=== PATIENT | female | born 1955 | race Caucasian/White ===

== ENCOUNTER 2017-02-25 16:33 | Observation (INO) | payer OTHER ==
[~2017-02-25] VITALS: Ht 160 cm; Wt 64.4 kg
[~2017-02-25 16:33] MED LIST: DULO60CA44 PO; HYDR-3763 PO; LPR25 PO; MOME100A INH; OMEP40CA41 PO; PRDFOPS; TIOTCAP INH; VNTHFA/IN INH
[2017-02-25 16:46] VITALS: Ht 160 cm; Wt 64.4 kg
[2017-02-25 17:00] LABS: HEMATOCRIT 34.6 % (37-47); HEMOGLOBIN 11.7 g/dL (12.0-16.0); MEAN CORPUSCULAR HEMOGLOBIN 29.8 pg (25-34); MEAN CORPUSCULAR HGB CONC 33.8 g/dl (32-36); MEAN PLATELET VOLUME 10.3 fL (7.4-10.4); PLATELET COUNT 273 K/uL (130-400); RED CELL DISTRIBUTION WIDTH CV 13.4 % (11.5-14.5); RED CELL DISTRIBUTION WIDTH SD 43.2 fL (36.4-46.3); WHITE BLOOD COUNT 9.18 K/uL (4.8-10.8)
[2017-02-25 17:09] LABS: PTT PATIENT 26.1 SECONDS (21.0-31.0)
[2017-02-25 17:15] LABS: CALCIUM 8.9 mg/dl (8.5-10.1); CREATININE 0.82 mg/dl (0.60-1.20); POTASSIUM 3.8 mmol/L (3.5-5.1)
--- NOTE | 2017-02-25 17:17 | EMERGENCY ROOM VISIT NOTE ---
History Report prepared by [place]: Selene Dwyer Under the Supervision of: Dr. Niurka Shields M.D. First contact with patient: 16:58 Chief Complaint: CHEST PAIN Stated Complaint: CHEST PAIN, R SHOULDER PAIN Nursing Triage Summary: pt has had intermittent left sided chest pain with radiation down arm for greater than a month, has an appointment with cards, set up. last 0300 awoke with pain, rapid heart rate and diaphoresis. pt later went shopping and it eased up then started again. 2 ntg in route relieved pain History of Present Illness The patient is a 61 year old female who presents to the Emergency Room with complaints of intermittent chest pain beginning at 0300 this morning. She states that she woke up, walked around, got water, and went back to bed. She states that she then woke up at 0730 with tightness in her chest and pain down her left arm. She reports that her heart was also pounding. She states that she went shopping and still had the tightness in her chest. She reports that walking exacerbates her symptoms. She states that she has been having her symptoms intermittently over the last month. She also reports having a chronic cough. The patient states that she took 2 nitroglycerin and aspirin on the way here. The patient was told recently that she may have a heart murmur but has not gone to the automation tech yet. She states that she had a stress test done 2 years ago. She reports that she smokes about 1 pack of cigarettes per day. She states that she takes blood pressure medications and BARBER, but denies a history of diabetes. Source of History: patient Onset: 0300 this morning Position: chest Quality: other (tightness) Timing: intermittent Modifying Factors (Worsening): movement (walking) Associated Symptoms: + cough Note: additional symptoms: pounding heart, left arm pain Review of Systems See HPI for pertinent positives & negatives. A total of 10 systems reviewed and were otherwise negative. Past Medical & Surgical Medical Problems: (1) Lan esophagus (2) COPD (chronic obstructive pulmonary disease) (3) Depression (4) HTN (hypertension) (5) BARBER (mycobacterium avium-intracellulare) Surgical Problems: (1) H/O shoulder surgery (2) H/O tubal ligation (3) History of appendectomy (4) History of hysterectomy (5) Hx of cholecystectomy Family History Diabetes mellitus FH: cancer FH: lung disease Hypertension Social History Smoking Status: Current Every Day Smoker Alcohol Use: occasionally Drug Use: none Marital Status: Housing Status: lives with family Occupation Status: unemployed Current/Historical Medications Scheduled Aspirin (Aspirin EC Low Dose), 81 MG PO QAM Duloxetine Hcl (Cymbalta), 60 MG PO QAM Metoprolol Tartrate (Lopressor), 25 MG PO BID Omeprazole (Prilosec), 40 MG PO QAM Scheduled PRN Albuterol Hfa (Ventolin Hfa), 2 PUFFS INH Q4H PRN for Wheezing Ondasetron Odt (Zofran Odt), 4 MG SL Q6H PRN for Nausea Allergies Coded Allergies: No Known Allergies (Unverified , 02/25/17) Physical Exam Vital Signs Date Time Temp Pulse Resp B/P (MAP) Pulse Ox O2 Delivery O2 Flow Rate FiO2 02/25/17 19:02 85 16 120/65 98 Room Air 02/25/17 18:23 77 19 98 02/25/17 18:00 129/68 02/25/17 17:53 74 19 99 02/25/17 17:48 74 20 97 02/25/17 17:33 74 22 97 02/25/17 17:21 98 Room Air 02/25/17 17:18 75 18 99 02/25/17 17:03 78 22 97 02/25/17 16:49 98 Room Air 02/25/17 16:46 36.6 80 19 144/69 97 Room Air 02/25/17 16:42 81 02/25/17 16:42 144/69 02/25/17 16:35 Room Air Physical Exam Vital signs reviewed. General: Well-appearing female, in no significant distress. HEENT: No scleral icterus, PERRLA, neck supple. Atraumatic. Cardiovascular: Regular rate and rhythm, no extra sounds. Pulmonary: Clear to auscultation bilaterally, normal work of breathing. Abdomen: Soft, nontender, nondistended, positive bowel sounds. Musculoskeletal: Atraumatic, no peripheral edema. Neurologic: Patient awake alert and oriented x 3, full strength in all 4 extremities. Cranial nerves 2 through 12 grossly intact. Skin: Warm, dry, no rash Medical Decision & Procedures ER Provider Diagnostic Interpretation: Radiology results as stated below per my review and radiologist interpretation: SINGLE VIEW CHEST CLINICAL HISTORY: Atypical chest pain. FINDINGS: An AP, portable, upright chest radiograph is compared to study dated 06/13/2013 and correlated with chest CT dated 08/08/2015. The examination is degraded by portable technique, apical lordotic positioning, and patient rotation. The cardiomediastinal silhouette is unremarkable. There is atherosclerotic calcification of the thoracic aorta. Emphysema and chronic interstitial thickening are similar to previous. There is no airspace consolidation or large pleural effusion. No pneumothorax is seen. The skeletal structures are osteopenic. The bony thorax is grossly intact. Cholecystectomy clips are identified in the right upper quadrant. IMPRESSION: Emphysematous change with no acute cardiopulmonary abnormality. Electronically signed by: Ulisses Degroot M.D. 02/25/2017 5:32 PM Dictated Date/Time: 02/25/2017 5:30 PM Laboratory Results Test 02/25/17 16:38 02/25/17 17:21 Prothrombin Time 10.7 SECONDS (9.0-12.0) Prothromb Time International Ratio 1.0 (0.9-1.1) Activated Partial Thromboplast Time 26.1 SECONDS (21.0-31.0) Partial Thromboplastin Ratio 1.0 Total Bilirubin 0.3 mg/dl (0.2-1) Aspartate Amino Transf (AST/SGOT) 12 U/L (15-37) Alanine Aminotransferase (ALT/SGPT) 13 U/L (12-78) Alkaline Phosphatase 78 U/L (45-117) Total Creatine Kinase 66 U/L (26-192) Total Protein 7.5 gm/dl (6.4-8.2) Albumin 4.0 gm/dl (3.4-5.0) Globulin 3.5 gm/dl (2.5-4.0) Albumin/Globulin Ratio 1.1 (0.9-2) Bedside Troponin I < 0.030 ng/ml (0-0.045) Laboratory results per my review. ECG Indication: chest pain Rate (beats per minute): 78 Rhythm: normal sinus Findings: no acute ischemic change, no ectopy, other (possible previous inferior infarct, likely previous septal infarct) ED Course 1705: Past medical records reviewed. The patient was evaluated in room B4B. A complete history and physical examination was performed. 184: I reviewed the patient's case with Kimmy SALVADOR. She will evaluate the patient for further management. 1854: Upon reevaluation, the patient is resting comfortably. I discussed laboratory and radiographic results with her. She verbalized agreement of the treatment plan. The patient will be evaluated for further management and care. Medical Decision Differential diagnosis: Etiologies such as cardiac ischemia, aortic dissection, pulmonary embolism, pneumonia, pneumothorax, musculoskeletal, infections, pericarditis, myocarditis , esophageal rupture, gastrointestinal, as well as others were entertained. This patient was evaluated and appeared to be in no significant distress. Patient declined any pain at the time of my evaluation. EKG reveals no acute ischemic changes. Chest x-ray was obtained and is clear. Patient's laboratory work reveals a negative troponin. Given her history of smoking and pain that is concerning for a coronary origin, patient will be evaluated by the hospitalist service for further management. She is aware of plan and agrees. Medication Reconcilliation Current Medication List: was personally reviewed by me Blood Pressure Screening Patient's blood pressure: Normal blood pressure Consults Time Called: 1799 Consulting Physician: Kimmy Hoffman Returned Call: 1841 I reviewed the patient's case with Kimmy SALVADOR. She will evaluate the patient for further management. Impression Primary Impression: Angina at rest Additional Impression: Palpitations Scribe Attestation The scribe's documentation has been prepared under my direction and personally reviewed by me in its entirety. I confirm that the note above accurately reflects all work, treatment, procedures, and medical decision making performed by me. Departure Information Dispostion Being Evaluated By Hospitalist Prescriptions Aspirin (Aspirin EC Low Dose) 81 Mg Ectab 81 MG PO QAM for 30 Days, #30 TABS 3 Refills take with full stomach Prov: Talita Díaz M.D. 02/26/17 Referrals Melissa Cruz M.D. (PCP) Patient Instructions My [facility] Problem Qualifiers
[2017-02-25 17:20] LABS: CKMB 0.7 ng/ml (0.5-3.6); TOTAL PROTEIN 7.5 gm/dl (6.4-8.2)
--- NOTE | 2017-02-25 17:33 | DIAGNOSTIC IMAGING REPORT ---
SINGLE VIEW CHEST CLINICAL HISTORY: Atypical chest pain. FINDINGS: An AP, portable, upright chest radiograph is compared to study dated 06/13/2013 and correlated with chest CT dated 08/08/2015. The examination is degraded by portable technique, apical lordotic positioning, and patient rotation. The cardiomediastinal silhouette is unremarkable. There is atherosclerotic calcification of the thoracic aorta. Emphysema and chronic interstitial thickening are similar to previous. There is no airspace consolidation or large pleural effusion. No pneumothorax is seen. The skeletal structures are osteopenic. The bony thorax is grossly intact. Cholecystectomy clips are identified in the right upper quadrant. IMPRESSION: Emphysematous change with no acute cardiopulmonary abnormality. Electronically signed by: Ulisses Degroot M.D. 02/25/2017 5:32 PM Dictated Date/Time: 02/25/2017 5:30 PM
[2017-02-25] MEDS ORDERED: ONDANSETRON INJ 2 MG/ML 2 ML VIAL IV PRN (19:15)
[2017-02-25] MEDS ORDERED: OPTIRAY 320 IV PRN (19:15)
[2017-02-25] MEDS ORDERED: NITROGLYCERIN 0.4 MG SL PER TAB CHARGE SL PRN (19:15)
[2017-02-25] MEDS ORDERED: ACETAMINOPHEN 325 MG TAB PO PRN (19:15)
[2017-02-25] MEDS ORDERED: ASPIRIN 325 MG ECTAB PO STA (19:17)
[2017-02-25] MEDS ORDERED: ONDA4TAB10 SL (19:29)
--- NOTE | 2017-02-25 19:58 | History and Physical ---
History & Physical Date & Time of Service: Feb 25, 2017 ~ 19:00 Chief Complaint: Chest Pain Primary Care Physician: Melissa Cruz M.D. History of Present Illness 61 year old female who presents to the ED with chest pain. Patient reports she has been having intermittent episodes of palpitations for the past couple of weeks. Patient reports last night she had an episode of palpitations and then developed left sided chest pressure. Pain was radiating into her left arm. She reports pain eased on its own and she was able to fall asleep. She awoke in the middle of the night with diaphoresis. The left sided chest discomfort was still present but she was able to again fall back asleep. When she woke up this morning pain was still persistent however now was more of a tightness. She reports intermittent left arm pain and numbness throughout the day and chest pain persisted. She called EMS and was given SL nitro en route. She reports that eased the pain however did not resolve it. She now reports a pain in her back between her shoulder blades. She noticed increased exertional shortness of breath since yesterday. She has had some lightheadedness and dizziness but denies syncopal event. She has left chest wall tenderness however reports that is not the same pain she was experiencing earlier. No other recent illnesses, fever, or chills. She denies abdominal pain, nausea, vomiting, and diarrhea. No urinary symptoms. In the ED, EKG does not show any acute ST changes and initial troponin is negative. Past Medical/Surgical History Medical Problems: (1) Lan esophagus Status: Chronic (2) COPD (chronic obstructive pulmonary disease) Status: Chronic (3) Depression Status: Chronic (4) HTN (hypertension) Status: Chronic (5) BARBER (mycobacterium avium-intracellulare) Status: Chronic Surgical Problems: (1) H/O shoulder surgery Permanent Comment: BL Status: Chronic (2) H/O tubal ligation Status: Chronic (3) History of appendectomy Status: Chronic (4) History of hysterectomy Status: Chronic (5) Hx of cholecystectomy Status: Chronic Family History FH: esophageal cancer MOTHER FH: heart disease FATHER Social History Smoking Status: Current Every Day Smoker Alcohol Use: none Immunizations History of Tetanus Vaccine?: Yes Tetanus Immunization Date: Dec 27, 2016 Multi-Drug Resistant Organisms History of MDRO: No Allergies Coded Allergies: No Known Allergies (Unverified , 12/27/17) Home Medications Scheduled Duloxetine Hcl (Cymbalta), 60 MG PO QAM Metoprolol Tartrate (Lopressor), 25 MG PO BID Omeprazole (Prilosec), 40 MG PO QAM Scheduled PRN Albuterol Hfa (Ventolin Hfa), 2 PUFFS INH Q4H PRN for Wheezing Ondasetron Odt (Zofran Odt), 4 MG SL Q6H PRN for Nausea Review of Systems ROS per HPI, all other systems reviewed and negative Physical Exam Vital Signs Date Time Temp Pulse Resp B/P (MAP) Pulse Ox O2 Delivery O2 Flow Rate FiO2 02/25/17 19:02 85 16 120/65 98 Room Air 02/25/17 18:23 77 19 98 02/25/17 18:00 129/68 02/25/17 17:53 74 19 99 02/25/17 17:48 74 20 97 02/25/17 17:33 74 22 97 02/25/17 17:21 98 Room Air 02/25/17 17:18 75 18 99 02/25/17 17:03 78 22 97 02/25/17 16:49 98 Room Air 02/25/17 16:46 36.6 80 19 144/69 97 Room Air 02/25/17 16:42 81 02/25/17 16:42 144/69 02/25/17 16:35 Room Air General Appearance: WD/WN, no apparent distress Head: normocephalic, atraumatic Eyes: normal inspection, EOMI, sclerae normal ENT: hearing grossly normal, + pertinent finding (mucous membranes moist) Neck: supple, no JVD, trachea midline Respiratory/Chest: lungs clear, normal breath sounds, no respiratory distress Cardiovascular: regular rate, rhythm, no edema, normal peripheral pulses Abdomen/GI: normal bowel sounds, non tender, soft, no organomegaly Extremities/Musculoskelatal: normal inspection, no calf tenderness, normal capillary refill Neurologic/Psych: no motor/sensory deficits, alert, normal mood/affect, oriented x 3 Skin: normal color, warm/dry Diagnostics Laboratory Results Results Past 24 Hours Test 02/25/17 16:38 02/25/17 17:21 Range/Units White Blood Count 9.18 4.8-10.8 K/uL Red Blood Count 3.93 4.2-5.4 M/uL Hemoglobin 11.7 12.0-16.0 g/dL Hematocrit 34.6 37-47 % Mean Corpuscular Volume 88.0 80-100 fL Mean Corpuscular Hemoglobin 29.8 25-34 pg Mean Corpuscular Hemoglobin Concent 33.8 32-36 g/dl RDW Standard Deviation 43.2 36.4-46.3 fL RDW Coefficient of Variation 13.4 11.5-14.5 % Platelet Count 273 130-400 K/uL Mean Platelet Volume 10.3 7.4-10.4 fL Prothrombin Time 10.7 9.0-12.0 SECONDS Prothromb Time International Ratio 1.0 0.9-1.1 Activated Partial Thromboplast Time 26.1 21.0-31.0 SECONDS Partial Thromboplastin Ratio 1.0 Sodium Level 138 136-145 mmol/L Potassium Level 3.8 3.5-5.1 mmol/L Chloride Level 105 98-107 mmol/L Carbon Dioxide Level 24 21-32 mmol/L Anion Gap 9.0 3-11 mmol/L Blood Urea Nitrogen 15 7-18 mg/dl Creatinine 0.82 0.60-1.20 mg/dl Est Creatinine Clear Calc Drug Dose 67.0 ml/min Estimated GFR () 90.1 Estimated GFR (Non- 77.8 BUN/Creatinine Ratio 18.1 10-20 Random Glucose 95 70-99 mg/dl Calcium Level 8.9 8.5-10.1 mg/dl Total Bilirubin 0.3 0.2-1 mg/dl Aspartate Amino Transf (AST/SGOT) 12 15-37 U/L Alanine Aminotransferase (ALT/SGPT) 13 12-78 U/L Alkaline Phosphatase 78 45-117 U/L Total Creatine Kinase 66 26-192 U/L Creatine Kinase MB 0.7 0.5-3.6 ng/ml Creatine Kinase MB Ratio 1.1 0-3.0 Total Protein 7.5 6.4-8.2 gm/dl Albumin 4.0 3.4-5.0 gm/dl Globulin 3.5 2.5-4.0 gm/dl Albumin/Globulin Ratio 1.1 0.9-2 Bedside Troponin I < 0.030 0-0.045 ng/ml Diagnostic Radiology CXR IMPRESSION: Emphysematous change with no acute cardiopulmonary abnormality. Impression Assessment and Plan CHEST PAIN - admit to tele - patient presenting with palpitations x 2 weeks and left sided chest pain with radiation into the left arm that started last night - due to patient's report of back pain - will obtain CT to r/o dissection - EKG without acute ST changes, initial troponin negative - risk factors for ACS: HTN, tobacco use - stress test 2012 negative for ischemia - if CT negative; will admit for observation, serial cardiac enzymes, and stress in AM if troponin negative - will give ASA 325mg and then continue with 81mg daily; check lipids in AM; continue metoprolol from home meds HTN - BP controlled, continue metoprolol COPD - no signs of acute exacerbation DEPRESSION - continue Cymbalta LAN ESOPHAGUS - continue PPI DVT PROPHYLAXIS - SQ Lovenox if CT negative for dissection DISPO - The patient will be placed as observation status for now until further work up is complete. Attending addendum: Woke up with Chest pain ,sob and sweating Still has upper chest pain /pressure with pain in between shoulder blades Initial EKG and Tro-negative CTA-negative for any dissection O/E Hemodynamically stable Chest-clear to ausucltate bilaterally Heart-regular Abdomen-benign Extremities-negative for any edema Labs and Imaging studies were reviewed Stress test if ruled out Agree with the assessment and plan. Dr Elisabeth Gray VTE Prophylaxis VTE Risk Assessment Done? Y/N: Yes Risk Level: Moderate
[2017-02-25 20:45] VITALS: BP 146/73; PULSE 66; TEMP 36.3; O2SAT 96
--- NOTE | 2017-02-25 20:45 | NUR ---
Obs. note: Patient arrived on floor. Vss. Normal sinus. No complaints of pain. Independent in room.
--- NOTE | 2017-02-25 21:00 | DIAGNOSTIC IMAGING REPORT ---
CT ANGIOGRAM OF THE CHEST COMBO CLINICAL HISTORY: Atypical chest pain. COMPARISON STUDY: Chest CT scans dated 08/08/2015 and 06/05/2015. TECHNIQUE: Before and following the IV administration of 115 cc of Optiray 320, CT angiogram of the chest was performed from the thoracic inlet to the upper abdomen utilizing the dissection protocol. Images are reviewed in the axial, sagittal, and coronal planes. 3-D MIPS images are created and assessed. IV contrast was administered without complication. A dose lowering technique was utilized adhering to the principles of ALARA. CT DOSE: 504.63 mGy.cm FINDINGS: Thyroid: Imaged portions of the thyroid gland are normal in size and attenuation. Thoracic aorta: No intramural hematoma is seen on the unenhanced series. There is mild atherosclerotic calcification of the thoracic aorta, which is normal in caliber and demonstrates standard 3-vessel arch anatomy. No dissection is seen. The arch vessels are widely patent. Pulmonary vasculature: The pulmonary trunk is normal in caliber. There are no filling defects identified within the main, lobar, or segmental pulmonary arteries to indicate pulmonary embolus. Note that this examination was not specifically protocoled to assess for pulmonary emboli. Heart: The heart is normal in size and configuration, and without pericardial effusion. There are coronary artery calcifications. Lungs and pleural spaces: Evaluation of the lung parenchyma is modestly degraded by motion artifact. Mild emphysematous change is observed. There is bibasilar atelectasis. There is no airspace consolidation or pleural effusion. A calcified granuloma seen at the right lung base. Mild diffuse peribronchial thickening suggests reactive airway disease. The trachea and central airways are clear. Mediastinum: There is no mediastinal lymphadenopathy. Vianney: There are calcification containing right hilar lymph nodes. No hilar adenopathy is seen. Axillae: There is no axillary lymphadenopathy. Upper abdomen: A small hiatal hernia is identified. Cholecystectomy clips are noted. Partially visualized upper abdominal viscera is within normal limits. Skeletal structures: No lytic or blastic bony lesions are seen. Degenerative change is seen in the shoulders and thoracic spine. IMPRESSION: 1. There is no aneurysm or dissection involving the thoracic aorta. 2. There is no evidence of pulmonary embolus in the main, lobar, or segmental pulmonary arteries. 3. Emphysema. 4. There is no airspace consolidation or pleural effusion. 5. Mild diffuse peribronchial thickening suggests reactive airway disease. Clinical correlation will be required. Electronically signed by: Ulisses Degroot M.D. 02/25/2017 8:58 PM Dictated Date/Time: 02/25/2017 8:51 PM
[2017-02-25] MEDS ORDERED: ENOXAPARIN 40 MG/0.4 ML SYR SQ ONE (21:12)
[2017-02-25] MEDS ORDERED: IV FLUIDS COMPLETED PRN (21:15)
[2017-02-25] MEDS ORDERED: NICOTINE 21 MG/24 HR TDSY TD ONE (21:23)
[2017-02-25] MEDS: METOPROLOL TARTRATE 25 MG TAB PO SCH (21:52)
[2017-02-25 22:45] LABS: CKMB 0.8 ng/ml (0.5-3.6)
[2017-02-26] VITALS (7 sets, daily range): BP systolic 114–128; BP diastolic 56–66; PULSE 56–75; TEMP 36.3–36.8; O2SAT 96–99
--- NOTE | 2017-02-26 | NUR ---
Obs. note: Vss. Normal sinus. Npo Mn. for fasting Lipids and stress Echo in A.M. Denies pain. Independent in room.
[2017-02-26 03:52] LABS: HEMATOCRIT 34.1 % (37-47); HEMOGLOBIN 11.3 g/dL (12.0-16.0); MEAN CORPUSCULAR HEMOGLOBIN 29.5 pg (25-34); MEAN CORPUSCULAR HGB CONC 33.1 g/dl (32-36); MEAN PLATELET VOLUME 10.1 fL (7.4-10.4); PLATELET COUNT 248 K/uL (130-400); RED CELL DISTRIBUTION WIDTH CV 13.7 % (11.5-14.5); RED CELL DISTRIBUTION WIDTH SD 44.4 fL (36.4-46.3); WHITE BLOOD COUNT 8.25 K/uL (4.8-10.8)
--- NOTE | 2017-02-26 04:00 | NUR ---
Obs note: Assessment unchanged. Normal sinus. Denies pain. Remains independent in room.
[2017-02-26 04:15] LABS: BLOOD UREA NITROGEN 13 mg/dl (7-18); CALCIUM 8.7 mg/dl (8.5-10.1); CARBON DIOXIDE 27 mmol/L (21-32); CREATININE 0.89 mg/dl (0.60-1.20); GLUCOSE 89 mg/dl (70-99); POTASSIUM 4.2 mmol/L (3.5-5.1); SODIUM 139 mmol/L (136-145)
[2017-02-26 04:21] LABS: CHOLESTEROL 214 mg/dl (0-200); CKMB 0.9 ng/ml (0.5-3.6); LDL CHOLESTEROL CALCULATED 142 mg/dl
--- NOTE | 2017-02-26 08:32 | NUR ---
OBS: Pt is alert and oriented x4. Pt denies any chest pain, pressure or tightness. Pt is Sinus Rhythm with 1st degree AV block. Pt taken to Cardiopulmonary Lab for stress test. Pt refused meds D/t having an empty stomach from being NPO.
[2017-02-26] MEDS ORDERED: NICOTINE 21 MG/24 HR TDSY TD SCH (09:00)
[2017-02-26] MEDS ORDERED: DULOXETINE HCL 60 MG CAP PO SCH (09:00)
[2017-02-26] MEDS ORDERED: PANTOprazole SOD 40 MG TAB PO SCH (09:00)
[2017-02-26] MEDS ORDERED: ENOXAPARIN 40 MG/0.4 ML SYR SQ SCH (09:00)
[2017-02-26] MEDS ORDERED: ASPIRIN 81 MG ECTAB PO SCH (09:00)
--- NOTE | 2017-02-26 10:06 | NUR ---
OBS: Pt returned from having stress test.
[2017-02-26] MEDS ORDERED: PERFLUTREN LIPID MICROSPHERE (DEFINITY) IV ONE (10:08)
[2017-02-26] MEDS: METOPROLOL TARTRATE 25 MG TAB PO SCH (11:03)
--- NOTE | 2017-02-26 12:00 | NUR ---
A: Pt alert and oriented x 4. Pt tolerated stress test well. Awaiting Discharge order. Pt tolerated 100% breakfast and lunch. Pt sinus rhythm on monitor. Pt denies any chest pain, pressure or tightness.
[2017-02-26] MEDS ORDERED: ASPI-320 PO (13:31)
--- NOTE | 2017-02-26 13:32 | Discharge Instructions ---
Discharge Instructions Date of Service Feb 26, 2017. Admission Reason for Admission: Chest Pain Discharge Discharge Diagnosis / Problem: CHEST PAIN /ATYPICAL FOR CARDIAC EVENT / NEGATIVE STRESS TEST Discharge Goals Goal(s): Decrease discomfort, Improve function, Increase independence, Improve disease control, Diagnostic testing Activity Recommendations Activity Limitations: resume your previous activity Exercise/Sports Limitations: none Shower/Bathe: no limitations Driving or Machine Use: no limitations . Instructions / Follow-Up Instructions / Follow-Up HOSPITAL FOLLOW UP : 03/03/2017 11:20 AM Deidra Zhong MD [facility] CARDIOLOGY FOLLOW UP : 03/30/2017 11:00 AM Kathryn Lind, DO Cardiology [facility] YOU ARE ASKED TO TAKE ASPIRIN 81 MG ENTERIC COATED DAILY -FOR FUTURE PREVENTION OF CARDIAC DISEASE PLEASE TAKE WITH FOOD YOUR LIPID PROFILE /CHOLESTEROL LEVEL : TRIGLYCERIDE 154 ( MILDLY ELEVATED NORMAL < 150 ) TOTAL CHOLESTEROL 214 ( IDEAL < 200 ) LDL 142 ( IDEAL < 130 -100 ) ( BAD CHOLESTEROL WHICH DEPOSITS ON HEART VESSELS AND CAUSES NARROWING /CLOT -LEADING TO HEART DISEASE /HEART ATTACK ) HDL -40 ( GOOD CHOLESTEROL -GIVING PROTECTION TO HEART VESSELS ) PLEASE ADOPT HEALTHY LIFESTYLE : Physical activity -Brisk walking /Aerobic exercise at 10 mins session /2 sessions a week Foods that can help lower cholesterol * A variety of whole- and multi-grain products, such as bran and oats. * Fatty fishes, such as salmon, mackerel and albacore tuna. * Foods rich in antioxidants, such as fruits and vegetables. > 5 servings per day * Foods high in omega-3 fatty acids, such as avocado, flax seeds, olive oil and canola oil. Reduce Calorie intake limit intake for Saturated Fat /Trans Fat -Butter , shortening FOOD THAT ARE HIGH IN CHOLESTEROL : Egg yolk Muffins Butter Liver processed food -Burger /Cymraes Fires Ice Cream REPEAT FASTING LIPID PROFILE IN 6 MONTHS TO ASSESS IMPROVEMENT THEN CHECK YEARLY Current Hospital Diet Patient's current hospital diet: AHA Diet (Heart Healthy) Discharge Diet Recommended Diet: AHA Diet (Heart Healthy) Pending Studies Studies pending at discharge: no Laboratory Results Lipid Panel Test 02/26/17 03:35 Range/Units Triglycerides Level 154 H 0-150 mg/dl Cholesterol Level 214 H 0-200 mg/dl HDL Cholesterol 41 mg/dl Cholesterol/HDL Ratio 5.2 LDL Cholesterol, Calculated 142 mg/dl Medical Emergencies . Who to Call and When: Medical Emergencies: If at any time you feel your situation is an emergency, please call 911 immediately. . Non-Emergent Contact Non-Emergency issues call your: Primary Care Provider . . "Provider Documentation" section prepared by Talita Díaz. . VTE Core Measure Inpt VTE Proph given/why not?: Enoxaparin (Lovenox)SQ
--- NOTE | 2017-02-26 14:20 | Discharge Summary ---
Discharge Summary Date of Service Feb 26, 2017. Discharge Summary Admission Date: Feb 25, 2017 at 19:13 Discharge Date: Feb 26, 2017 Discharge Disposition: Home Principal Diagnosis: CHEST PAIN /ATYPICAL FOR CARDIAC EVENT /NEGATIVE STRESS TEST Procedures: CARDIAC STRESS TEST : STRESS STUDY: Normal exercise stress echocardiogram. No echocardiographic or ECG evidence of myocardial ischemia having achieved heart rate adequate for diagnostic purpose CT ANGIOGRAM OF CHEST COMBO: IMPRESSION: 1. There is no aneurysm or dissection involving the thoracic aorta. 2. There is no evidence of pulmonary embolus in the main, lobar, or segmental pulmonary arteries. 3. Emphysema. 4. There is no airspace consolidation or pleural effusion. 5. Mild diffuse peribronchial thickening suggests reactive airway disease. Clinical correlation will be required. Medication Reconciliation New Medications: Aspirin (Aspirin EC Low Dose) 81 Mg Ectab 81 MG PO QAM for 30 Days, #30 TABS 3 Refills take with full stomach Continued Medications: Albuterol Hfa (Ventolin Hfa) 200 Puffs/62753 Mcg Aers 2 PUFFS INH Q4H PRN for Wheezing Duloxetine Hcl (Cymbalta) 60 Mg Cap 60 MG PO QAM, CAP Metoprolol Tartrate (Lopressor) 25 Mg Tab 25 MG PO BID, TAB Omeprazole (Prilosec) 40 Mg Cap 40 MG PO QAM, CAP Ondasetron Odt (Zofran Odt) 4 Mg Tab 4 MG SL Q6H PRN for Nausea, #6 TAB Admission Information HPI (per Admitting provider): 61 year old female who presents to the ED with chest pain. Patient reports she has been having intermittent episodes of palpitations for the past couple of weeks. Patient reports last night she had an episode of palpitations and then developed left sided chest pressure. Pain was radiating into her left arm. She reports pain eased on its own and she was able to fall asleep. She awoke in the middle of the night with diaphoresis. The left sided chest discomfort was still present but she was able to again fall back asleep. When she woke up this morning pain was still persistent however now was more of a tightness. She reports intermittent left arm pain and numbness throughout the day and chest pain persisted. She called EMS and was given SL nitro en route. She reports that eased the pain however did not resolve it. She now reports a pain in her back between her shoulder blades. She noticed increased exertional shortness of breath since yesterday. She has had some lightheadedness and dizziness but denies syncopal event. She has left chest wall tenderness however reports that is not the same pain she was experiencing earlier. No other recent illnesses, fever, or chills. She denies abdominal pain, nausea, vomiting, and diarrhea. No urinary symptoms. In the ED, EKG does not show any acute ST changes and initial troponin is negative. Physical Exam (per Admitting): General Appearance: WD/WN, no apparent distress Head: normocephalic, atraumatic Eyes: normal inspection, EOMI, sclerae normal ENT: hearing grossly normal, + pertinent finding (mucous membranes moist) Neck: supple, no JVD, trachea midline Respiratory/Chest: lungs clear, normal breath sounds, no respiratory distress Cardiovascular: regular rate, rhythm, no edema, normal peripheral pulses Abdomen/GI: normal bowel sounds, non tender, soft, no organomegaly Extremities/Musculoskelatal: normal inspection, no calf tenderness, normal capillary refill Neurologic/Psych: no motor/sensory deficits, alert, normal mood/affect, oriented x 3 Skin: normal color, warm/dry Hospital Course no complain of chest pain or SOB negative cardiac stress test today eager to be discharged home PHYSICAL EXAM : gen : no sign of distress HEENT : sclera non icteric , PERRLA/EOMI HT : regular S1/S2 , no JVD , no carotid bruit Lungs: clear to auscultate , no wheeze or rales EXT: no lower ext edema, no rash or deformity Neurology : no focal neurological deficit , AAO x3 CHEST PAIN /ATYPICAL FOR ISCHEMIA/CARDIAC EVENT - patient presented with palpitations x 2 weeks and left sided chest pain with radiation into the left arm that started last night - CTA of chest no evidence of Aortic dissection Cardiac stress test negative pt dose not have any symptom today no arrhythmia noted in tele stable to be discharged home today asked to take Aspirin 81 mg daily as Primary prevention counselled for Cardiac risk modification Smoking cessation /diet and exercise pt verbalizes understanding - HTN - BP controlled, continue metoprolol COPD - no signs of acute exacerbation DEPRESSION - continue Cymbalta KENNEDY ESOPHAGUS - continue PPI TOBACCO ABUSE : smoking cessation counselling provided DVT PROPHYLAXIS : Sub Q Lovenox DISPOSITION : Stable to be discharged home today Discharge Instructions Discharge Instructions Date of Service Feb 26, 2017. Admission Reason for Admission: Chest Pain Discharge Discharge Diagnosis / Problem: CHEST PAIN /ATYPICAL FOR CARDIAC EVENT / NEGATIVE STRESS TEST Discharge Goals Goal(s): Decrease discomfort, Improve function, Increase independence, Improve disease control, Diagnostic testing Activity Recommendations Activity Limitations: resume your previous activity Exercise/Sports Limitations: none Shower/Bathe: no limitations Driving or Machine Use: no limitations . Instructions / Follow-Up Instructions / Follow-Up HOSPITAL FOLLOW UP : 03/03/2017 11:20 AM Deidra Zhong MD [facility] CARDIOLOGY FOLLOW UP : 03/30/2017 11:00 AM Kathryn Lind, DO Cardiology [facility] YOU ARE ASKED TO TAKE ASPIRIN 81 MG ENTERIC COATED DAILY -FOR FUTURE PREVENTION OF CARDIAC DISEASE PLEASE TAKE WITH FOOD YOUR LIPID PROFILE /CHOLESTEROL LEVEL : TRIGLYCERIDE 154 ( MILDLY ELEVATED NORMAL < 150 ) TOTAL CHOLESTEROL 214 ( IDEAL < 200 ) LDL 142 ( IDEAL < 130 -100 ) ( BAD CHOLESTEROL WHICH DEPOSITS ON HEART VESSELS AND CAUSES NARROWING /CLOT -LEADING TO HEART DISEASE /HEART ATTACK ) HDL -40 ( GOOD CHOLESTEROL -GIVING PROTECTION TO HEART VESSELS ) PLEASE ADOPT HEALTHY LIFESTYLE : Physical activity -Brisk walking /Aerobic exercise at 10 mins session /2 sessions a week Foods that can help lower cholesterol * A variety of whole- and multi-grain products, such as bran and oats. * Fatty fishes, such as salmon, mackerel and albacore tuna. * Foods rich in antioxidants, such as fruits and vegetables. > 5 servings per day * Foods high in omega-3 fatty acids, such as avocado, flax seeds, olive oil and canola oil. Reduce Calorie intake limit intake for Saturated Fat /Trans Fat -Butter , shortening FOOD THAT ARE HIGH IN CHOLESTEROL : Egg yolk Muffins Butter Liver processed food -Burger /Khmer Fires Ice Cream REPEAT FASTING LIPID PROFILE IN 6 MONTHS TO ASSESS IMPROVEMENT THEN CHECK YEARLY Current Hospital Diet Patient's current hospital diet: AHA Diet (Heart Healthy) Discharge Diet Recommended Diet: AHA Diet (Heart Healthy) Pending Studies Studies pending at discharge: no Laboratory Results Lipid Panel Test 02/26/17 03:35 Range/Units Triglycerides Level 154 H 0-150 mg/dl Cholesterol Level 214 H 0-200 mg/dl HDL Cholesterol 41 mg/dl Cholesterol/HDL Ratio 5.2 LDL Cholesterol, Calculated 142 mg/dl Medical Emergencies . Who to Call and When: Medical Emergencies: If at any time you feel your situation is an emergency, please call 911 immediately. . Non-Emergent Contact Non-Emergency issues call your: Primary Care Provider . . "Provider Documentation" section prepared by Talita Díaz. . VTE Core Measure Inpt VTE Proph given/why not?: Enoxaparin (Lovenox)SQ
--- NOTE | 2017-02-26 14:28 | NUR ---
OBS: Discharge instructions given and explained to Pt. Pt verbalizes understanding. Pt discharged to home with friend and all belongings.
--- NOTE | 2017-02-26 18:11 | EXERCISE STRESS ECHO ---
*NOTICE TO RECEIVING CONSTITUTION PARTY AGENCY This information is strictly Confidential and protected under [place] law. [place] law prohibits you from making any further disclosure of this information unless further disclosure is expressly permitted by the written consent of the person to whom it pertains or is authorized by law. A general authorization for the release of medical or other information is not sufficient for this purpose. Hospital accepts no responsibility if the information is made available to any other person, INCLUDING THE PATIENT. Interpretation Summary * Name: SHARMIN BROWN Study Date: 02/26/2017 08:17 AM BP: 132/57 mmHg * Patient Location: [facility]\S\N277\S\1 HR: 77 * : 1955 (M/d/yyyy) Gender: Female Height: 62 in * Age: 61 yrs Ethnicity: [place] Weight: 147 lb * Ordering Physician: Kimmy Reich * Referring Physician: Self, Referred * Performed By: Keya Jimenez RDCS * * Reason For Study: Chest Pain, COPD, HTN * BSA: 1.7 m2 * STRESS STUDY: Normal exercise stress echocardiogram. No echocardiographic or ECG evidence of myocardial ischemia having achieved heart rate adequate for diagnostic purposes. * -- Conclusions -- * STRESS STUDY: Normal exercise stress echocardiogram. No echocardiographic or ECG evidence of myocardial ischemia having achieved heart rate adequate for diagnostic purposes. Procedure Details * ECHOEX, CPT #[id number] * ECHO DOPPLER, CPT #[id number] * ECHO COLOR FLOW, CPT #[id number] * A contrast injection of Definity was performed to improve assessment of LV function. * Contrast was injected into an intravenous site in the left arm. * One vial of Definity ultrasound contrast was diluted in normal saline to a total volume of 10 ml. A total of '4' ml of solution was administered during imaging. * Lot # [id number] of Definity utilized for procedure. * Expiration date . Left Ventricle * The left ventricle is normal in size. * There is mild concentric left ventricular hypertrophy. * Ejection Fraction = 60-65%. * The left ventricular wall motion is normal at rest. Right Ventricle * The right ventricle is grossly normal size. * The right ventricular systolic function is normal. Atria * The left atrial size is normal. * Right atrial size is normal. * There is no evidence of atrial septal defect, but resolution does not allow assessment for a patent foramen ovale. Mitral Valve * The mitral valve is normal in structure and function. Tricuspid Valve * The tricuspid valve is normal in structure and function. Aortic Valve * The aortic valve is normal in structure and function. Pulmonic Valve * The pulmonic valve is not well visualized. Great Vessels * The aortic root and proximal ascending aorta are normal sized. Pericardium * There is no pericardial effusion. Stress Parameters * Baseline ECG was essentially normal. No symptoms were noted. * Normal baseline electrocardiogram. * The stress ECG response was normal * Stress ECG: No ST changes. No arrhythmias. * The stress portion of this study was personally supervised by the undersigned interpreting physician. * Rest heart rate was '77' BPM. * Rest blood pressure was '132/57' * Maximum heart rate achieved was 148 bpm. * Maximum heart rate was 92 % of maximum age-predicted heart rate. * Maximum blood pressure was '204/62' * Total exercise time was '03:58' * Maximum exercise MET level achieved was '5.70' METS * Maximum treadmill speed was '2.50' miles per hour. * Maximum treadmill elevation was '12.00'% grade. MMode 2D Measurements and Calculations IVSd 1.2 cm IVSs 1.3 cm LVIDd 3.5 cm LVIDs 2.3 cm LVPWd 1.1 cm LVPWs 1.4 cm IVS/LVPW 1.0 FS 34.0 % EDV(Teich) 51.4 ml ESV(Teich) 18.5 ml EF(Teich) 64.0 % EDV(cubed) 43.4 ml ESV(cubed) 12.5 ml EF(cubed) 71.3 % % IVS thick 10.4 % % LVPW thick 20.6 % LV mass(C)d 129.1 grams LV mass(C)dI 77.0 grams/m\S\2 LV mass(C)s 93.5 grams LV mass(C)sI 55.7 grams/m\S\2 SV(Teich) 32.9 ml SI(Teich) 19.6 ml/m\S\2 SV(cubed) 31.0 ml SI(cubed) 18.5 ml/m\S\2 Ao root diam 3.0 cm Ao root area 6.9 cm\S\2 ACS 1.5 cm LA dimension 2.5 cm LA/Ao 0.84 LVAd ap4 20.7 cm\S\2 LVLd ap4 7.6 cm EDV(MOD-sp4) 46.8 ml EDV(sp4-el) 47.8 ml LVAs ap4 11.2 cm\S\2 LVLs ap4 5.7 cm ESV(MOD-sp4) 19.4 ml ESV(sp4-el) 18.5 ml EF(MOD-sp4) 58.5 % EF(sp4-el) 61.2 % LVAd ap2 26.3 cm\S\2 LVLd ap2 8.2 cm EDV(MOD-sp2) 70.5 ml EDV(sp2-el) 71.8 ml LVAs ap2 12.8 cm\S\2 LVLs ap2 6.1 cm ESV(MOD-sp2) 23.4 ml ESV(sp2-el) 22.8 ml EF(MOD-sp2) 66.8 % EF(sp2-el) 68.2 % LVLd %diff 7.4 % EDV(MOD-bp) 59.2 ml LVLs %diff 6.6 % ESV(MOD-bp) 21.3 ml EF(MOD-bp) 64.0 % SV(MOD-sp4) 27.3 ml SI(MOD-sp4) 16.3 ml/m\S\2 SV(MOD-sp2) 47.1 ml SI(MOD-sp2) 28.1 ml/m\S\2 SV(MOD-bp) 37.9 ml SI(MOD-bp) 22.6 ml/m\S\2 SV(sp4-el) 29.3 ml SI(sp4-el) 17.5 ml/m\S\2 SV(sp2-el) 49.0 ml SI(sp2-el) 29.2 ml/m\S\2 Doppler Measurements and Calculations MV E max shon 79.5 cm/sec MV A max shon 112.0 cm/sec MV E/A 0.71 MV dec time 0.42 sec Ao V2 max 176.5 cm/sec Ao max PG 12.5 mmHg Ao max PG (full) 4.2 mmHg LV V1 max PG 8.2 mmHg LV V1 max 143.2 cm/sec PA V2 max 98.9 cm/sec PA max PG 3.9 mmHg TR max shon 148.3 cm/sec
== END 2017-02-26 14:30 | disposition home or self-care (01) ==
LOC: EDBD 16:33 → C.EDB 16:36 → C.MED 19:13 → ENRESERV 19:42
PROVIDERS: ADMIT Internal Medicine; ATTEND Hospitalist
DX: R07.89 Other chest pain (principal); R00.2 Palpitations; I10 Essential (primary) hypertension; K22.70 Barrett's esophagus without dysplasia; J44.9 Chronic obstructive pulmonary disease, unspecified; F32.9 Major depressive disorder, single episode, unspecified; F17.200 Nicotine dependence, unspecified, uncomplicated; Z79.899 Other long term (current) drug therapy

== ENCOUNTER 2021-08-06 13:09 | Observation (INO) ==
[2021-08-06] MEDS ORDERED: NITROGLYCERIN 2% OINTMENT 30GM TUBE EXT STA (13:26)
--- NOTE | 2021-08-06 13:30 | Emergency Department Note ---
History of Present Illness General Chief complaint: Cardiac Assessment Time Seen by Provider: 08/06/21 13:16 Source: patient, EMS and old records reviewed Mode of arrival: EMS Limitations: no limitations History of Present Illness Provider complaint: Left shoulder pain, shortness of breath, diaphoresis, recent MD Onset (ago): week(s) 1 Relieved By: + none Exacerbated By: + movement Associated symptoms: + chest pain, + diaphoresis and + shortness of breath Treatments prior to arrival: aspirin and other This is a 65-year-old female presents emergency department via EMS after being seen in her PCPs office for a follow-up appointment following her recent hospitalization for heart attack at [facility]. Patient had been flown to [place] last week for a STEMI. Per records, 2 stents were placed in her RCA for a 100% acute occlusion. Patient states she was discharged on of last week. She states several medications were started upon discharge. She states she is taking them as prescribed. She states since coming home, she has still had exertional symptoms of left shoulder and arm pain, diaphoresis, and shortness of breath. Patient states symptoms do typically improve with rest, however they are sometimes still present. When she described the symptoms to her PCP in the follow-up visit today they obtained a repeat EKG and discussed with her the need for additional emergent evaluation due to ongoing symptoms and concern for recent STEMI. Patient was given 1 nitro and aspirin by EMS without any relief. Pt seen during a time of high acuity and national emergency pandemic while wearing PPE. Home Medications Medication Instructions Recorded Confirmed Type albuterol sulfate 90 mcg/actuation 1 puffs INH Q6H PRN #18 gm 12/08/18 08/08/21 Rx aerosol inhaler (Ventolin HFA) duloxetine 60 mg capsule,delayed 60 mg PO QAM 12/08/18 08/08/21 History release (Cymbalta) trazodone 100 mg tablet 100 mg PO HS 04/03/21 08/08/21 History umeclidinium 62.5 mcg/actuation 1 inh INH QAM 04/09/21 08/08/21 History blister powder for inhalation (Incruse Ellipta) omeprazole 40 mg capsule,delayed 40 mg PO DAILY #90 cap 07/15/21 08/08/21 Rx release ondansetron HCl 4 mg tablet 4 mg PO Q8H PRN #30 tab 07/15/21 08/08/21 Rx aspirin 81 mg chewable tablet 81 mg PO DAILY 08/05/21 08/08/21 History (Aspirin Childrens) atorvastatin 80 mg tablet 80 mg PO DAILY 08/05/21 08/08/21 History carvedilol 3.125 mg tablet 3.125 mg PO BID 08/05/21 08/08/21 History lisinopril 5 mg tablet 5 mg PO DAILY 08/05/21 08/08/21 History nitroglycerin 0.4 mg sublingual 0.4 mg SUBLINGUAL Q5M PRN 08/05/21 08/08/21 History tablet ticagrelor 90 mg tablet 90 mg PO BID 08/05/21 08/08/21 History fluticasone propionate 230 2 puffs INH BID #12 gm 08/07/21 08/08/21 Rx mcg-salmeterol 21 mcg/actuation HFA inhaler (Advair HFA) nystatin 100,000 unit/mL oral 5 ml PO QID 7 Days #150 ml 08/07/21 08/08/21 Rx suspension Allergies Allergy/AdvReac Type Severity Reaction Status Date / Time No Known Allergies Allergy Unverified 08/06/21 15:17 Past Med/Surg History Medical History Acute inferior myocardial infarction [facility] s/p RCA stents x 2 Lan esophagus COPD (chronic obstructive pulmonary disease) Coronary artery disease Depression Diastolic dysfunction Esophageal reflux HTN (hypertension) Hypercholesterolemia 10 year ASCVD risk score 14.1% 07/23/21. Started on Lipitor 20 mg BARBER (mycobacterium avium-intracellulare) Tobacco use Surgical History (Updated 08/08/21 @ 19:57 by Chyna Moulton DO) H/O shoulder surgery "BL" H/O tubal ligation History of appendectomy History of hysterectomy Hx of cholecystectomy S/P cardiac catheterization (~07/30/21) acute 100% thrombotic occlusion of proximal RCA lesion which was treated successfully with overlapping DESx2 (synergy 2.5 mm x 20 mm & synergy 2.75 mm x 38mm) S/P tonsillectomy Family History (Updated 08/06/21 @ 16:36 by Indra Shepherd) Mother Esophageal cancer Social History (Updated 08/06/21 @ 16:37 by Indra Shepherd) Smoking Status: Current every day smoker Cigarettes Per Day: 20; Second Hand Exposure: No; Hx Alcohol Use: Yes (History of heavy alcohol use x 20 years. 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 Feels Safe at Home: Yes Assistive Devices: None Review of Systems A total of 10 systems reviewed and were otherwise negative All systems reviewed & are unremarkable except as noted in HPI & below Physical Exam Vital Signs Vital Signs - 24 hr 08/06/21 13:30 08/06/21 13:45 08/06/21 14:00 Temperature 36.8 C Temperature Source Oral Pulse Rate 67 72 73 Pulse Rate [Apical] Pulse Rate from SpO2 Sensor 67 71 71 Pulse Rhythm [Apical] Pulse Strength [Apical] Respiratory Rate 17 21 19 Respiratory Effort / Characteristics SOB on Exertion Respiratory Depth Blood Pressure 157/72 H 146/84 H Blood Pressure [Left Arm] Blood Pressure Mean 100 104 Blood Pressure Mean [Left Arm] Blood Pressure Position Lying Pulse Oximetry 100 100 98 Oxygen Delivery Method Room Air Room Air Room Air Sepsis Recent Fever Within 48 Hours No Sepsis New/Unexplained Change in Mental Status No Sepsis Action Taken by Nursing No Action Required 08/06/21 14:01 08/06/21 14:15 08/06/21 14:30 Temperature Temperature Source Pulse Rate 64 67 Pulse Rate [Apical] Pulse Rate from SpO2 Sensor 62 66 Pulse Rhythm [Apical] Pulse Strength [Apical] Respiratory Rate 23 22 Respiratory Effort / Characteristics Respiratory Depth Blood Pressure 143/67 H 152/72 H Blood Pressure [Left Arm] Blood Pressure Mean 92 98 Blood Pressure Mean [Left Arm] Blood Pressure Position Pulse Oximetry 98 100 Oxygen Delivery Method Room Air Sepsis Recent Fever Within 48 Hours Sepsis New/Unexplained Change in Mental Status Sepsis Action Taken by Nursing 08/06/21 15:04 Temperature Temperature Source Pulse Rate Pulse Rate [Apical] 66 Pulse Rate from SpO2 Sensor Pulse Rhythm [Apical] Regular Pulse Strength [Apical] Normal Respiratory Rate 16 Respiratory Effort / Characteristics Non-Labored Respiratory Depth Normal Blood Pressure Blood Pressure [Left Arm] 127/69 Blood Pressure Mean Blood Pressure Mean [Left Arm] 88 Blood Pressure Position Pulse Oximetry 96 Oxygen Delivery Method Room Air Sepsis Recent Fever Within 48 Hours Sepsis New/Unexplained Change in Mental Status Sepsis Action Taken by Nursing GENERAL: alert, unwell appearing, well nourished, no distress, non-toxic EYE EXAM: normal conjunctiva, PERRL and EOM's grossly intact OROPHARYNX: no exudate, no erythema, lips, buccal mucosa, and tongue normal and mucous membranes are moist, poor dentition NECK: supple, no nuchal rigidity, no adenopathy, non-tender LUNGS: Clear to auscultation. Normal chest wall mechanics, no w/r/r HEART: no murmurs, S1 normal and S2 normal ABDOMEN: abdomen soft, non-tender, normo-active bowel sounds, no masses, no rebound or guarding. BACK: Back is symmetrical on inspection and there is no deformity, no midline tenderness, no CVA tenderness. SKIN: no rashes and no bruising UPPER EXTREMITIES: upper extremities are grossly normal. FROM, nml pulses b/l. LOWER EXTREMITIES: No pitting edema. FROM, nml pulses b/l. NEURO EXAM: Normal sensorium, cranial nerves II-XII grossly intact, normal speech, no gross weakness of arms, no gross weakness of legs. Gross sensation intact. Course Course 1335: Discussed with Dr. Valencia. Will attempt to get patient pain free. Will order STAT echo. 1400: Patient states pain in shoulder/arm had improved with meds but is now coming back. No SOB or sweating at this time. VS stable. Administered Medications Discontinued Medications Aspirin (Aspirin 81 Mg Ectab) 81 mg PO DAILY [facility] Stop: 09/06/21 08:59 Last Admin: 08/07/21 08:00 Dose: 81 mg Documented by: [id number] Atorvastatin Calcium (Atorvastatin 40 Mg Tab) 80 mg PO DAILY [facility] Stop: 09/06/21 08:59 Last Admin: 08/07/21 08:01 Dose: 80 mg Documented by: [id number] Carvedilol (Carvedilol 3.125 Mg Tab) 3.125 mg PO BIDM [facility] Stop: 09/05/21 18:29 Last Admin: 08/07/21 08:02 Dose: 3.125 mg Documented by: [id number] Admin: 08/06/21 19:33 Dose: 3.125 mg Documented by: [id number] Duloxetine HCl (Duloxetine Hcl 60 Mg Cap) 60 mg PO QAM [facility] Stop: 09/06/21 08:59 Last Admin: 08/07/21 08:01 Dose: 60 mg Documented by: [id number] Fentanyl Citrate (Fentanyl Citrate 100 Mcg/2 Ml Vial) 50 mcg IV Q15M PRN PRN Reason: Pain Stop: 08/20/21 13:25 Last Admin: 08/06/21 14:34 Dose: 50 mcg Documented by: [id number] Admin: 08/06/21 13:39 Dose: 50 mcg Documented by: [id number] Fluticasone/Vilanterol (Fluticasone/Vilanterol 100/25mcg 14 Puffs/Inhaler) 1 puffs INH DAILY [facility]; Protocol Stop: 09/06/21 08:59 Last Admin: 08/07/21 08:00 Dose: 1 puffs Documented by: [id number] Heparin Sodium (Porcine) (Heparin Sod 5,000 Unit/0.5 Ml Vial) 5,000 units SQ Q8 VITO Stop: 09/05/21 21:59 Last Admin: 08/07/21 05:04 Dose: Not Given Documented by: [id number] Admin: 08/06/21 22:25 Dose: Not Given Documented by: [id number] Magnesium Sulfate/Dextrose (Magnesium Sulfate / D5w) 1 gm in 100 mls @ 100 mls/hr IV Q1H [facility] Stop: 08/06/21 16:38 Last Infusion: 08/06/21 17:49 Dose: 0 mls/hr Documented by: [id number] Admin: 08/06/21 16:30 Dose: 100 mls/hr Documented by: [id number] Infusion: 08/06/21 16:23 Dose: 0 mls/hr Documented by: [id number] Admin: 08/06/21 14:45 Dose: 100 mls/hr Documented by: [id number] Sodium Chloride (Nss 1000ml) 1,000 mls @ 75 mls/hr IV .[id number] [facility] Stop: 08/07/21 07:24 Last Infusion: 08/07/21 08:32 Dose: 0 mls/hr Documented by: [id number] Admin: 08/06/21 18:32 Dose: 75 mls/hr Documented by: [id number] Lisinopril (Lisinopril 5 Mg Tab) 5 mg PO DAILY [facility] Stop: 09/06/21 08:59 Last Admin: 08/07/21 08:01 Dose: 5 mg Documented by: [id number] Nitroglycerin (Nitroglycerin 2% Ointment 30gm Tube) 1 inch EXT NOW STA Stop: 08/06/21 13:27 Last Admin: 08/06/21 13:39 Dose: 1 inch Documented by: [id number] Nystatin (Nystatin Susp 500,000 U/5 Ml Udc) 5 ml PO QID VITO Stop: 08/16/21 18:29 Last Admin: 08/07/21 08:02 Dose: Not Given Documented by: [id number] Admin: 08/06/21 22:25 Dose: Not Given Documented by: [id number] Admin: 08/06/21 19:32 Dose: 5 ml Documented by: [id number] Pantoprazole Sodium (Pantoprazole 40 Mg Tab) 40 mg PO QAM [facility] Stop: 09/06/21 08:59 Last Admin: 08/07/21 08:02 Dose: 40 mg Documented by: [id number] Ticagrelor (Ticagrelor 90 Mg Tab) 90 mg PO BID [facility] Stop: 09/05/21 20:59 Last Admin: 08/07/21 08:01 Dose: 90 mg Documented by: [id number] Admin: 08/06/21 19:38 Dose: 90 mg Documented by: [id number] Trazodone HCl (Trazodone Hcl 100 Mg Tab) 100 mg PO HS [facility] Stop: 09/05/21 20:59 Last Admin: 08/06/21 19:38 Dose: 100 mg Documented by: [id number] Umeclidinium [place] (Umeclidinium [place] 62.5mcg/Blister 7 Puffs/Inhaler) [facility]: 09/06/21 08:59 Last Admin: 08/07/21 08:00 Dose: 1 puffs Documented by: [id number] Critical Care Time Critical Care Time: Yes Total Critical Care Time: 48 Critical care of 48 min performed to assess and manage high likelihood of life- threatening ACS, involving labs and imaging performed with assessment to e valuate chest pain and dyspnea diagnosis with frequent reassessment. This time includes bedside time, treatment discussions with patient/family/consultants, documentation time and excludes procedure time. Medical Decision Making Differential Diagnosis Differential diagnoses includes but is not limited to acute coronary syndrome, myocardial infarction, pericarditis, pulmonary embolus, aortic dissection, pneumonia, pneumothorax, musculoskeletal, shingles, esophageal. Medical Records Attestation: I reviewed the patient's medical records. Home Medications Current Medication List: was personally reviewed by me Laboratory Data Attestation: I reviewed the patient's lab results. Result diagrams: 08/06/21 13:31 08/07/21 01:14 Lab Results 08/06/21 08/06/21 08/06/21 Range/Units 13:31 13:31 13:31 WBC 10.75 (4.8-10.8) K/uL RBC 4.57 (4.2-5.4) M/uL Hgb 12.8 (12.0-16.0) g/dL Hct 38.3 (37-47) % MCV 83.8 (80-100) fL MCH 28.0 (25-34) pg MCHC 33.4 (32-36) g/dL RDW Std Deviation 42.1 (36.4-46.3) fL RDW Coeff of Diane 13.8 (11.5-14.5) % Plt Count 391 (130-400) K/uL MPV 10.5 H (7.4-10.4) fL Immature Gran % (Auto) 0.6 % Neut % (Auto) 66.8 % Lymph % (Auto) 22.7 % [place] % (Auto) 7.6 % Eos % (Auto) 2.0 % Baso % (Auto) 0.3 % Neut # (Auto) 7.18 H (1.4-6.5) K/uL Lymph # (Auto) 2.44 (1.2-3.4) K/uL [place] # (Auto) 0.82 H (0.11-0.59) K/uL Eos # (Auto) 0.22 (0-0.5) K/uL Baso # (Auto) 0.03 (0-0.2) K/uL Immature Gran # (Auto) 0.06 H (0.00-0.02) K/uL ESR (0-30) mm/hr PT 12.2 H (9.0-12.0) Seconds INR 1.2 H (0.9-1.1) D-Dimer (0-500) ug/L FEU Sodium 138 (136-145) mmol/L Potassium 4.3 (3.5-5.1) mmol/L Chloride 106 (98-107) mmol/L Carbon Dioxide 24 (21-32) mmol/L Anion Gap 8 (3-11) BUN 9 (6-23) mg/dl Creatinine 0.92 (0.6-1.2) mg/dl Est Cr Clr Drug Dosing 56.7 ml/min Est GFR ( Amer) 76.3 ml/min Est GFR (Non-Af Amer) 65.8 ml/min BUN/Creatinine Ratio 9.8 L (10-20) Glucose 103 H (70-99(Fasting)) mg/dl Calcium 9.1 (8.5-10.1) mg/dl Magnesium 1.5 L (1.7-2.4) mg/dl Total Bilirubin 0.7 (0.2-1.0) mg/dl AST 14 (13-39) U/L ALT 11 (7-52) U/L Alkaline Phosphatase 82 (34-104) U/L Troponin I High Sens 43.3 H (0-14) pg/ml C-Reactive Protein (0-0.5) mg/dl Total Protein 7.1 (6.0-8.3) gm/dl Albumin 4.3 (3.4-5.0) gm/dl Globulin 2.8 (2.5-4.0) gm/dl Albumin/Globulin Ratio 1.5 (0.9-2) Lipase 17 (11-82) U/L SARS-CoV-2, RNA, NAAT (NEGATIVE) 08/06/21 08/06/21 08/06/21 Range/Units 13:31 13:31 13:31 WBC (4.8-10.8) K/uL RBC (4.2-5.4) M/uL Hgb (12.0-16.0) g/dL Hct (37-47) % MCV (80-100) fL MCH (25-34) pg MCHC (32-36) g/dL RDW Std Deviation (36.4-46.3) fL RDW Coeff of Diane (11.5-14.5) % Plt Count (130-400) K/uL MPV (7.4-10.4) fL Immature Gran % (Auto) % Neut % (Auto) % Lymph % (Auto) % [place] % (Auto) % Eos % (Auto) % Baso % (Auto) % Neut # (Auto) (1.4-6.5) K/uL Lymph # (Auto) (1.2-3.4) K/uL [place] # (Auto) (0.11-0.59) K/uL Eos # (Auto) (0-0.5) K/uL Baso # (Auto) (0-0.2) K/uL Immature Gran # (Auto) (0.00-0.02) K/uL ESR 27 (0-30) mm/hr PT (9.0-12.0) Seconds INR (0.9-1.1) D-Dimer 340 (0-500) ug/L FEU Sodium (136-145) mmol/L Potassium (3.5-5.1) mmol/L Chloride (98-107) mmol/L Carbon Dioxide (21-32) mmol/L Anion Gap (3-11) BUN (6-23) mg/dl Creatinine (0.6-1.2) mg/dl Est Cr Clr Drug Dosing ml/min Est GFR ( Amer) ml/min Est GFR (Non-Af Amer) ml/min BUN/Creatinine Ratio (10-20) Glucose (70-99(Fasting)) mg/dl Calcium (8.5-10.1) mg/dl Magnesium (1.7-2.4) mg/dl Total Bilirubin (0.2-1.0) mg/dl AST (13-39) U/L ALT (7-52) U/L Alkaline Phosphatase (34-104) U/L Troponin I High Sens (0-14) pg/ml C-Reactive Protein 1.44 H (0-0.5) mg/dl Total Protein (6.0-8.3) gm/dl Albumin (3.4-5.0) gm/dl Globulin (2.5-4.0) gm/dl Albumin/Globulin Ratio (0.9-2) Lipase (11-82) U/L SARS-CoV-2, RNA, NAAT (NEGATIVE) 08/06/21 Range/Units 14:04 WBC (4.8-10.8) K/uL RBC (4.2-5.4) M/uL Hgb (12.0-16.0) g/dL Hct (37-47) % MCV (80-100) fL MCH (25-34) pg MCHC (32-36) g/dL RDW Std Deviation (36.4-46.3) fL RDW Coeff of Diane (11.5-14.5) % Plt Count (130-400) K/uL MPV (7.4-10.4) fL Immature Gran % (Auto) % Neut % (Auto) % Lymph % (Auto) % [place] % (Auto) % Eos % (Auto) % Baso % (Auto) % Neut # (Auto) (1.4-6.5) K/uL Lymph # (Auto) (1.2-3.4) K/uL [place] # (Auto) (0.11-0.59) K/uL Eos # (Auto) (0-0.5) K/uL Baso # (Auto) (0-0.2) K/uL Immature Gran # (Auto) (0.00-0.02) K/uL ESR (0-30) mm/hr PT (9.0-12.0) Seconds INR (0.9-1.1) D-Dimer (0-500) ug/L FEU Sodium (136-145) mmol/L Potassium (3.5-5.1) mmol/L Chloride (98-107) mmol/L Carbon Dioxide (21-32) mmol/L Anion Gap (3-11) BUN (6-23) mg/dl Creatinine (0.6-1.2) mg/dl Est Cr Clr Drug Dosing ml/min Est GFR ( Amer) ml/min Est GFR (Non-Af Amer) ml/min BUN/Creatinine Ratio (10-20) Glucose (70-99(Fasting)) mg/dl Calcium (8.5-10.1) mg/dl Magnesium (1.7-2.4) mg/dl Total Bilirubin (0.2-1.0) mg/dl AST (13-39) U/L ALT (7-52) U/L Alkaline Phosphatase (34-104) U/L Troponin I High Sens (0-14) pg/ml C-Reactive Protein (0-0.5) mg/dl Total Protein (6.0-8.3) gm/dl Albumin (3.4-5.0) gm/dl Globulin (2.5-4.0) gm/dl Albumin/Globulin Ratio (0.9-2) Lipase (11-82) U/L SARS-CoV-2, RNA, NAAT NEGATIVE (NEGATIVE) Imaging Data Radiologist's Impression: Chest X-Ray 08/06/21 13:26 XR chest 1V portable HISTORY: 65 years-old Female cp acute atypical chest pain COMPARISON: Chest radiograph 04/09/2021 TECHNIQUE: Portable AP view of the chest FINDINGS: The cardiomediastinal and hilar silhouettes are within normal limits. No pneumothorax, pleural effusion, airspace consolidation or overt pulmonary edema. Degenerative changes of the shoulders and spine. Cholecystectomy. IMPRESSION: No acute process. ACT 112: Negative or not required by law. The above report was generated using voice recognition software. It may contain grammatical, syntax or spelling errors. Electronically signed by: Sunil Obando M.D. 08/06/2021 1:50 PM ECG Data Attestation: I personally reviewed and interpreted this ECG as follows: Indication: + chest pain Rate (beats per minute): 61 Rhythm: + normal sinus ECG Intervals/blocks: + Normal QRS and + Normal QT ECG [place]: + Normal ECG ST segments: + ST elevation (II, III, aVF) and + T-wave inversions (aVL) Additional Comments: appears improved compared to prior EKG from 08/01/21 MDM Narrative An order was placed for continuous cardiac monitoring. The monitor shows a rate of _90_ with _normal sinus_ rhythm. This is a 65-year-old female presents emergency department due to acute onset of left shoulder and left upper extremity pain with shortness of breath, dyspnea, and lightheadedness similar to presentation of a STEMI recently which required cardiac catheterization and placement of 2 stents in the RCA. Patient stated she had not been feeling well since her discharge on however symptoms worsened with exertion and now occurred also at rest. Patient brought in emergently after a follow-up visit in her PCPs office due to concern for her symptoms as well as an abnormal EKG. EKG reviewed and compared to prior during her admission and while abnormal was improved. Case discussed urgently with Dr. Valencia as a precaution while labs drawn and sent, chest x-ray performed, medication given for pain. Per his recommendation an echo was ordered stat for cardiology review and plan for additional inpatient observation and management. Patient's pain was improved with Nitropaste and several doses of fentanyl. Echo performed at bedside. Cardiology did come see the patient while in the emergency room. At this time I do not suspect acute in-stent thrombosis or occlusion. Patient is still high risk for ACS given multiple risk factors/comorbidities. Troponin was elevated however this may be trending down compared to prior given recent ACS and intervention. Inflammatory markers added following discussion with hospitalist. Impression & Plan Acute dyspnea, S/P cardiac cath, Acute pain of left shoulder, Tobacco abuse Discharge Plan Visit Data Chief Complaint: Cardiac Assessment ED Provider: Chyna Moulton Discharge Problem: Acute dyspnea, S/P cardiac cath, Acute pain of left shoulder, Tobacco abuse Patient Disposition: Admitted As Inpatient Discharge Instructions Interventions: ED Discharge Assessment Last Done: 08/06/21 17:49
[2021-08-06] MEDS: fentaNYL citrate 100 MCG/2 ML VIAL IV PRN ×2 (13:39→14:34)
--- NOTE | 2021-08-06 13:51 | XRay Report ---
XR chest 1V portable HISTORY: 65 years-old Female cp acute atypical chest pain COMPARISON: Chest radiograph 04/09/2021 TECHNIQUE: Portable AP view of the chest FINDINGS: The cardiomediastinal and hilar silhouettes are within normal limits. No pneumothorax, pleural effusi on, airspace consolidation or overt pulmonary edema. Degenerative changes of the shoulders and spine. Cholecystectomy. IMPRESSION: No acute process. ACT 112: Negative or not required by law. The above report was generated using voice recognition software. It may contain grammatical, syntax o r spelling errors. Electronically signed by: Sunil Obando M.D. 08/06/2021 1:50 PM
[2021-08-06 13:53] LABS: Basophils # (auto) 0.03 K/uL (0-0.2); Basophils % (auto) 0.3 %; Eosinophils # (auto) 0.22 K/uL (0-0.5); Hematocrit (blood only) 38.3 % (37-47); Hemoglobin 12.8 g/dL (12.0-16.0); Immature Granulocytes # (auto) 0.06 K/uL (0.00-0.02); Immature Granulocytes % (auto) 0.6 %; Lymphocytes # (auto) 2.44 K/uL (1.2-3.4); Lymphocytes % (auto) 22.7 %; Mean Corpuscular Hgb Conc 33.4 g/dL (32-36); Mean Corpuscular Volume 83.8 fL (80-100); Mean Platelet Volume 10.5 fL (7.4-10.4); Monocytes # (auto) 0.82 K/uL (0.11-0.59); Monocytes % (auto) 7.6 %; Neutrophils # (auto) 7.18 K/uL (1.4-6.5); Neutrophils % (auto) 66.8 %; Platelet Count 391 K/uL (130-400); RDW Coefficient of Variation 13.8 % (11.5-14.5); RDW Standard Deviation 42.1 fL (36.4-46.3); Red Blood Count 4.57 M/uL (4.2-5.4); White Blood Count 10.75 K/uL (4.8-10.8)
[2021-08-06 14:03] LABS: INR 1.2 (0.9-1.1); Prothrombin Time 12.2 Seconds (9.0-12.0)
[2021-08-06 14:17] LABS: Troponin I High Sensitivity 43.3 pg/ml (0-14)
[2021-08-06 14:29] LABS: Albumin Globulin Ratio 1.5 (0.9-2); Albumin Level 4.3 gm/dl (3.4-5.0); BUN Creatinine Ratio 9.8 (10-20); Bilirubin,Total 0.7 mg/dl (0.2-1.0); Calcium 9.1 mg/dl (8.5-10.1); Creatinine Clr Calc Pharmacy 56.7 ml/min; Est GFR (African American) 76.3 ml/min; Est GFR (Non-African American) 65.8 ml/min; Globulin 2.8 gm/dl (2.5-4.0); Magnesium 1.5 mg/dl (1.7-2.4); Potassium 4.3 mmol/L (3.5-5.1); Total Protein 7.1 gm/dl (6.0-8.3)
[2021-08-06] MEDS: MAGNESIUM SULFATE / D5W 1 GM/100 ML BAG IV SCH ×2 (14:45→16:30)
--- NOTE | 2021-08-06 15:55 | History & Physical Report ---
Date of Service August 06, 2021 Assessment & Plan (1) Chest pain: Plan: Many of her presenting symptoms are quite similar to her recent inferior STEMI. In fact she had improvement in her left arm symptoms with topical nitropaste in the ER. Despite the symptoms her echo today shows normal inferior wall motion and normal EF. This would argue against RCA stent occlusion. She was seen urgently by cardiology this evening and they, too, feel that her symptoms are likely not from ischemia. Will trend her troponins overnight. Follow symptoms. Continue DAPT and other cardiac meds. I did review her d/c summary from [facility] and apparently she had had chest symptoms following initial stent placement. She was taken back to the r&d lab technician and her RCA stents were found to be patent. She had additional episodes of sweats and other chest symptoms as well. Those records suggested w/u for pheochromocytoma. D-dimer was checked and found to be normal. Thus, will hold off on CTA chest for PEs at this time. Sed rate and crp wnl; post-NJ pericarditis unlikely. (2) Coronary artery disease: Plan: s/p inferior STEMI with 100% occluded RCA 07/28/21. s/p 2 RCA ANALI. Cont DAPT. Cont Coreg. Cont LUPE. Cont statin. (3) Candidiasis of mouth and esophagus: Plan: 2nd to chronic inhaled steroids. Nystatin solution 5cc qid. (4) COPD (chronic obstructive pulmonary disease): Plan: No evidence of exacerbation at this time. She continues to use tobacco although she has cut back. Cont usual home inhalers. (5) HTN (hypertension): Plan: Cont home BP meds. (6) Lan esophagus: Plan: Perhaps upper GI tract pathology/GERD/etc is contributing to current symptoms. Either way will continue PPI. (7) Depression: Plan: Cont home meds (8) Hypercholesterolemia: Plan: Cont statin agent (9) Tobacco use: Plan: 3D Artist to quit patient is motivated to do so Plan: place on observation status History of Present Illness Chief Complaint: L arm pain, R sided chest pain, dyspnea Primary Care Provider: MODESTO Robles 65yo female with long-standing tobacco abuse history dating back to teenage years (2ppd since) and recent inferior wall STEMI s/p ANALI x 2 to an occluded RCA at [facility] last week. She had presented early last week to [facility] with b/l chest tightness and "Crushing" chest pain along with radiation of pain to the jaw and the entire left arm. She had nausea, emesis, and diaphoresis with her acute NJ. She was transferred to [facility] in [place]; admission 07/28, discharged 08/01. She was d/c home in stable condition this past and generally felt well with the exception of mild dyspnea on exertion. She had the NEVILLE intermittently and lasting only brief amounts of time since her hospital d/c. Denied having any b/l chest pain that was similar to her acute NJ. Overnight last pm she awoke twice with "stabbing" right breast pain. This was associated with severe sweats/diaphoresis. Each episode of right breast pain lasted about 1 minute each. Was able to return to sleep. No pleuritic component. This am she awoke with mild left arm pain which worsened through the morning. She also had heartburn (unusual for her) and nausea. Went to see her PCP, EKG was taken, and she was referred to the [facility] ER. Here a stat echo was done showing normal LV wall motion with EF >70%. She received topical nitrates and her left arm pain was essentially resolved by the time I saw her. She has NOT had any chest pain - either right-sided or b/l - at any time today. Does mention things tasting oddly since her hospital stay last week. She also had diarrhea yesterday. Allergies Allergy/AdvReac Type Severity Reaction Status Date / Time No Known Allergies Allergy Unverified 08/06/21 15:17 Home Medications Medication Instructions Recorded Confirmed Type albuterol sulfate 90 mcg/actuation 1 puffs INH Q6H PRN #18 gm 12/08/18 08/06/21 Rx aerosol inhaler (Ventolin HFA) duloxetine 60 mg capsule,delayed 60 mg PO QAM 12/08/18 08/06/21 History release (Cymbalta) fluticasone propionate 230 2 puffs INH BID #12 gm 06/14/19 08/06/21 Rx mcg-salmeterol 21 mcg/actuation HFA inhaler (Advair HFA) trazodone 100 mg tablet 100 mg PO HS 04/03/21 08/06/21 History umeclidinium 62.5 mcg/actuation 1 inh INH QAM 04/09/21 08/06/21 History blister powder for inhalation (Incruse Ellipta) omeprazole 40 mg capsule,delayed 40 mg PO DAILY #90 cap 07/15/21 08/06/21 Rx release ondansetron HCl 4 mg tablet 4 mg PO Q8H PRN #30 tab 07/15/21 08/06/21 Rx aspirin 81 mg chewable tablet 81 mg PO DAILY 08/05/21 08/06/21 History (Aspirin Childrens) atorvastatin 80 mg tablet 80 mg PO DAILY 08/05/21 08/06/21 History carvedilol 3.125 mg tablet 3.125 mg PO BID 08/05/21 08/06/21 History lisinopril 5 mg tablet 5 mg PO DAILY 08/05/21 08/06/21 History nitroglycerin 0.4 mg sublingual 0.4 mg SUBLINGUAL Q5M PRN 08/05/21 08/06/21 History tablet ticagrelor 90 mg tablet 90 mg PO BID 08/05/21 08/06/21 History Past Med/Surg History Medical History Acute inferior myocardial infarction [facility] s/p RCA stents x 2 Lan esophagus COPD (chronic obstructive pulmonary disease) Coronary artery disease Depression Diastolic dysfunction Esophageal reflux HTN (hypertension) Hypercholesterolemia 10 year ASCVD risk score 14.1% 07/23/21. Started on Lipitor 20 mg BARBER (mycobacterium avium-intracellulare) Tobacco use Surgical History (Updated 08/06/21 @ 23:20 by Indra Shepherd) H/O shoulder surgery "BL" H/O tubal ligation History of appendectomy History of hysterectomy Hx of cholecystectomy S/P cardiac catheterization (~07/30/21) acute 100% thrombotic occlusion of proximal RCA lesion which was treated successfully with overlapping DESx2 (synergy 2.5 mm x 20 mm & synergy 2.75 mm x 38mm) S/P tonsillectomy Family History (Updated 08/06/21 @ 16:36 by Indra Shepherd) Mother Esophageal cancer Social History (Updated 08/06/21 @ 16:37 by Indra Shepherd) Smoking Status: Current every day smoker Cigarettes Per Day: 20; Second Hand Exposure: No; Hx Alcohol Use: Yes (History of heavy alcohol use x 20 years. 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 Other Information That Helps Us Care for You: No Feels Safe at Home: Yes Assistive Devices: None Review of Systems Review of Systems: gen - no fevers or chills; no weight change; eating fine eyes - no visual changes recently HENT - no dysphagia; changes in taste since hospitalization in [place] but no changes in smell; no nasal congestion CV - see HPI pulm - chronic cough; chronic NEVILLE GI - vomiting/diarrhea yesterday, no abd pain - no dysuria musculo - "joint pains everywhere" (Chronic) endo - denies diabetes skin - no rash; bruises R wrist from recent heart cath neuro - no headache psych - mild anxiety Physical Exam Physical Exam: gen - comfortable, NAD, awake, alert eyes - PERRL HENT - probable thrush buccal mucosa; MMM otherwise neck - no JVD heart - RRR, s1 s2, no murmur vascular - radial pulses 2+ b/l; right radial artery without hematoma or aneurysm (bruising only from recent cath) lungs - minimal b/l basilar fine rales, no wheezes, no increased work of breathing abd - soft NT ND BS+ ext - no edema, pulses 2+ b/l chest - no reproducible chest wall tenderness to palpation skin - no rash; ecchymoses R wrist region neuro - strength 5/5 x 4 exts; DTRs 2+ b/l psych - a/o x 3 Results & Data Results & Data ([facility]) Vital Signs (Past 12 Hours) Vital Signs Temp Pulse Pulse Resp BP BP Pulse Ox 08/06/21 15:04 66 16 127/69 96 08/06/21 14:30 67 22 152/72 H 100 08/06/21 14:15 64 23 143/67 H 98 08/06/21 14:00 73 19 98 08/06/21 13:45 36.8 C 72 21 146/84 H 100 08/06/21 13:30 67 17 157/72 H 100 Laboratory Results Laboratory Results - last 24 hr 08/06/21 08/06/21 08/06/21 13:31 13:31 13:31 WBC 10.75 RBC 4.57 Hgb 12.8 Hct 38.3 MCV 83.8 MCH 28.0 MCHC 33.4 RDW Std Deviation 42.1 RDW Coeff of Diane 13.8 Plt Count 391 MPV 10.5 H Immature Gran % (Auto) 0.6 Neut % (Auto) 66.8 Lymph % (Auto) 22.7 Sequoyah % (Auto) 7.6 Eos % (Auto) 2.0 Baso % (Auto) 0.3 Neut # (Auto) 7.18 H Lymph # (Auto) 2.44 Sequoyah # (Auto) 0.82 H Eos # (Auto) 0.22 Baso # (Auto) 0.03 Immature Gran # (Auto) 0.06 H ESR PT 12.2 H INR 1.2 H D-Dimer Sodium 138 Potassium 4.3 Chloride 106 Carbon Dioxide 24 Anion Gap 8 BUN 9 Creatinine 0.92 Est Cr Clr Drug Dosing 56.7 Est GFR ( Amer) 76.3 Est GFR (Non-Af Amer) 65.8 BUN/Creatinine Ratio 9.8 L Glucose 103 H Calcium 9.1 Magnesium 1.5 L Total Bilirubin 0.7 AST 14 ALT 11 Alkaline Phosphatase 82 Troponin I High Sens 43.3 H C-Reactive Protein Total Protein 7.1 Albumin 4.3 Globulin 2.8 Albumin/Globulin Ratio 1.5 Lipase 17 SARS-CoV-2, RNA, NAAT 08/06/21 08/06/21 08/06/21 13:31 13:31 13:31 WBC RBC Hgb Hct MCV MCH MCHC RDW Std Deviation RDW Coeff of Diane Plt Count MPV Immature Gran % (Auto) Neut % (Auto) Lymph % (Auto) Sequoyah % (Auto) Eos % (Auto) Baso % (Auto) Neut # (Auto) Lymph # (Auto) Sequoyah # (Auto) Eos # (Auto) Baso # (Auto) Immature Gran # (Auto) ESR 27 PT INR D-Dimer 340 Sodium Potassium Chloride Carbon Dioxide Anion Gap BUN Creatinine Est Cr Clr Drug Dosing Est GFR ( Amer) Est GFR (Non-Af Amer) BUN/Creatinine Ratio Glucose Calcium Magnesium Total Bilirubin AST ALT Alkaline Phosphatase Troponin I High Sens C-Reactive Protein 1.44 H Total Protein Albumin Globulin Albumin/Globulin Ratio Lipase SARS-CoV-2, RNA, NAAT 08/06/21 08/06/21 14:04 19:18 WBC RBC Hgb Hct MCV MCH MCHC RDW Std Deviation RDW Coeff of Diane Plt Count MPV Immature Gran % (Auto) Neut % (Auto) Lymph % (Auto) Sequoyah % (Auto) Eos % (Auto) Baso % (Auto) Neut # (Auto) Lymph # (Auto) Sequoyah # (Auto) Eos # (Auto) Baso # (Auto) Immature Gran # (Auto) ESR PT INR D-Dimer Sodium Potassium Chloride Carbon Dioxide Anion Gap BUN Creatinine Est Cr Clr Drug Dosing Est GFR ( Amer) Est GFR (Non-Af Amer) BUN/Creatinine Ratio Glucose Calcium Magnesium Total Bilirubin AST ALT Alkaline Phosphatase Troponin I High Sens 39.6 H C-Reactive Protein Total Protein Albumin Globulin Albumin/Globulin Ratio Lipase SARS-CoV-2, RNA, NAAT NEGATIVE Diagnostic Findings Chest X-Ray 08/06/21 13:26 XR chest 1V portable HISTORY: 65 years-old Female cp acute atypical chest pain COMPARISON: Chest radiograph 04/09/2021 TECHNIQUE: Portable AP view of the chest FINDINGS: The cardiomediastinal and hilar silhouettes are within normal limits. No pneum othorax, pleural effusion, airspace consolidation or overt pulmonary edema. Degenerative changes of the shoulders and spine. Cholecystectomy. IMPRESSION: No acute process. ACT 112: Negative or not required by law. The above report was generated using voice recognition software. It may contain grammatical, syntax or spelling errors. Electronically signed by: Sunil Obando M.D. 08/06/2021 1:50 PM EKG - my reading -- NSR, mild j-point elevation inferior leads; Q waves inferior leads; no other ST changes Code Status & VTE Plan Code Status full code PG Care Time/CCT Total # of Minutes Spent Total Time Spent with Patient: Total time spent is greater than 50% in coordination of care (as documented) at patient's floor/unit and/or counseling patient: Coding Level of Care Code INT OBSERVATION CARE 70M LVL 3 Diagnoses Chest pain R07.9 Coronary artery disease I25.10 Candidiasis of mouth and esophagus B37.81; B37.0 COPD (chronic obstructive pulmonary disease) J44.9 HTN (hypertension) I10 Lan esophagus K22.70 Depression F32.9 Hypercholesterolemia E78.00 Tobacco use Z72.0
--- NOTE | 2021-08-06 16:11 | XCELERA ---
[id number]
[2021-08-06 17:03] LABS: D Dimer 340 ug/L FEU (0-500)
--- NOTE | 2021-08-06 17:58 | Cardiology Consultation ---
Date of Consultation August 06, 2021 Assessment & Plan (1) Coronary artery disease: 2. LT arm pain 3. Hypertension with intermittent flushing/night sweats 4. Dyslipidemia 5. GERD/Lan's 6. Tobacco abuse Patient's presenting symptoms do not represent stent thrombosis or ACS. LV function has improved from immeadiately post CA, now normal. No evidence of pericarditis or heart failure on echo or exam. Suspect patient's LT arm pain is non-cardiac. Trend troponin, monitor on telemetry and can likely be discharged tomorrow. Continue DAPT with ASA, ticagrelor. Continue lisinopril, coreg and statin. Can work-up pheochromocytoma as an outpatient. History of Present Illness History of Present Illness Ms. Gurrola is a 65 year old woman with recently diagnosed CAD in the setting of Inferior CA post PCI with ANALI x2 to RCA. Here with left arm pain and concern for recurrent ACS event. 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 Patient seen today in ED. Sent in by PCP due to LT arm pain, diaphoresis overnight and abnormal ECG. She reports for the most part feeling well since her discharge on 08/01. Walking without chest symptoms. Episode of nausea yesterday. No recurrent chest pain reminiscent of CA symptoms. Has had diaphoresis/night sweats including last night which states she has had for years. Had similar episodes while admitted and concern for pheochromocytoma raised. LT arm pain today different than what had with CA. In ED treated with nitro patch, slntg without change. ECG showed inferior infarct with subtle inferior ST elevations. HsTrop 43. CXR unremarkable. Echo EF 70%, no regional wall motion abnormalities. Currently feeling well without symptoms. During hospitalization at [facility] - Cath 07/30 100% pLAD 2 ANALI (2.5x20, 2.75x38 Synergy). Mild distal RCA disease - TTE 07/30 EF 45-50% inferior, posterior akinesis, mild MR. - Underwent redo cardiac cath due recurrent chest pain/hypertension which showed unchanged stent Allergies Allergy/AdvReac Type Severity Reaction Status Date / Time No Known Allergies Allergy Unverified 08/06/21 15:17 Home Medications Medication Instructions Recorded Confirmed Type albuterol sulfate 90 mcg/actuation 1 puffs INH Q6H PRN #18 gm 10/09/19 06/07/22 Rx aerosol inhaler (Ventolin HFA) duloxetine 60 mg capsule,delayed 60 mg PO QAM 12/08/18 08/06/21 History release (Cymbalta) fluticasone propionate 230 2 puffs INH BID #12 gm 06/14/19 08/06/21 Rx mcg-salmeterol 21 mcg/actuation HFA inhaler (Advair HFA) trazodone 100 mg tablet 100 mg PO HS 04/03/21 08/06/21 History umeclidinium 62.5 mcg/actuation 1 inh INH QAM 04/09/21 08/06/21 History blister powder for inhalation (Incruse Ellipta) omeprazole 40 mg capsule,delayed 40 mg PO DAILY #90 cap 07/15/21 08/06/21 Rx release ondansetron HCl 4 mg tablet 4 mg PO Q8H PRN #30 tab 07/15/21 08/06/21 Rx aspirin 81 mg chewable tablet 81 mg PO DAILY 08/05/21 08/06/21 History (Aspirin Childrens) atorvastatin 80 mg tablet 80 mg PO DAILY 08/05/21 08/06/21 History carvedilol 3.125 mg tablet 3.125 mg PO BID 08/05/21 08/06/21 History lisinopril 5 mg tablet 5 mg PO DAILY 08/05/21 08/06/21 History nitroglycerin 0.4 mg sublingual 0.4 mg SUBLINGUAL Q5M PRN 08/05/21 08/06/21 History tablet ticagrelor 90 mg tablet 90 mg PO BID 08/05/21 08/06/21 History Patient History Medical History Acute inferior myocardial infarction [facility] s/p RCA stents x 2 Lan esophagus COPD (chronic obstructive pulmonary disease) Coronary artery disease Depression Diastolic dysfunction Esophageal reflux HTN (hypertension) Hypercholesterolemia 10 year ASCVD risk score 14.1% 07/23/21. Started on Lipitor 20 mg BARBER (mycobacterium avium-intracellulare) Tobacco use Surgical History H/O shoulder surgery "BL" H/O tubal ligation History of appendectomy History of hysterectomy Hx of cholecystectomy S/P cardiac catheterization (~05/31/22) acute 100% thrombotic occlusion of proximal RCA lesion which was treated successfully with overlapping DESx2 (synergy 2.5 mm x 20 mm & synergy 2.75 mm x 38mm) Family History (Updated 08/06/21 @ 16:36 by Indra Shepherd) Mother Esophageal cancer Social History (Updated 08/06/21 @ 16:37 by Indra Shepherd) Smoking Status: Current every day smoker Cigarettes Per Day: 20; Second Hand Exposure: No; Hx Alcohol Use: Yes (History of heavy alcohol use x 20 years. 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 No hematoma. Abdomen: Soft, nontender Extremities: Well perfused, no peripheral edema Neuro: Nonfocal Psych: Alert orient x3, normal affect and mood Results & Data ([facility]) Vital Signs (Past 12 Hours) Vital Signs Temp Pulse Pulse Resp BP BP Pulse Ox 08/06/21 16:31 60 18 136/84 98 08/06/21 15:04 66 16 127/69 96 08/06/21 14:30 67 22 152/72 H 100 08/06/21 14:15 64 23 143/67 H 98 08/06/21 14:00 73 19 98 08/06/21 13:45 98.2 F 72 21 146/84 H 100 08/06/21 13:30 67 17 157/72 H 100 PG Care Time/CCT Total # of Minutes Spent Total Time Spent with Patient: Total time spent is greater than 50% in coordination of care (as documented) at patient's floor/unit and/or counseling patient: Coding Level of Care Code 58124 Office/Outpt Visit, New Diagnoses Coronary artery disease I25.10
[2021-08-06] MEDS ORDERED: NITROGLYCERIN SL 0.4 MG/TAB TAB SL PRN (18:05)
[2021-08-06] MEDS ORDERED: ONDANSETRON INJ 2 MG/ML 2 ML VIAL IV PRN (18:05)
[2021-08-06] MEDS ORDERED: SODIUM CHLORIDE 0.9% 1000ML 1,000 ML IV SCH (18:05)
[2021-08-06] MEDS ORDERED: ALBUTEROL HFA 8 GM INHALER INH PRN (18:05)
[2021-08-06] MEDS ORDERED: ACETAMINOPHEN 325 MG TAB PO PRN (18:05)
[2021-08-06] MEDS ORDERED: ONDANSETRON 4 MG OD TAB PO PRN (18:53)
[2021-08-06] MEDS: NYSTATIN SUSP 500,000 U/5 ML UDC PO SCH ×2 (19:32→22:25)
[2021-08-06] MEDS: carvediloL 3.125 MG TAB PO SCH (19:33)
[2021-08-06] MEDS: TICAGRELOR 90 MG TAB PO SCH (19:38)
[2021-08-06] MEDS ORDERED: traZODone HCL 100 MG TAB PO SCH (21:00)
[2021-08-06] MEDS: HEPARIN SOD 5,000 UNIT/0.5 ML VIAL SQ SCH (22:25)
[2021-08-07 02:04] LABS: BUN Creatinine Ratio 11.1 (10-20); Calcium 8.8 mg/dl (8.5-10.1); Creatinine Clr Calc Pharmacy 64.4 ml/min; Est GFR (Non-African American) 76.8 ml/min; Potassium 4.2 mmol/L (3.5-5.1)
[2021-08-07 02:06] LABS: Troponin I High Sensitivity 35.4 pg/ml (0-14)
[2021-08-07] MEDS: HEPARIN SOD 5,000 UNIT/0.5 ML VIAL SQ SCH (05:04)
[2021-08-07] MEDS: TICAGRELOR 90 MG TAB PO SCH (08:01)
[2021-08-07] MEDS: NYSTATIN SUSP 500,000 U/5 ML UDC PO SCH (08:02)
[2021-08-07] MEDS: carvediloL 3.125 MG TAB PO SCH (08:02)
[2021-08-07] MEDS ORDERED: PANTOprazole 40 MG TAB PO SCH (09:00)
[2021-08-07] MEDS ORDERED: FLUTICASONE/VILANTEROL 100/25MCG 14 PUFFS/INHALER INH SCH (09:00)
[2021-08-07] MEDS ORDERED: ATORVASTATIN 40 MG TAB PO SCH (09:00)
[2021-08-07] MEDS ORDERED: ASPIRIN 81 MG ECTAB PO SCH (09:00)
[2021-08-07] MEDS ORDERED: lisinopril 5 MG TAB PO SCH (09:00)
[2021-08-07] MEDS ORDERED: DULoxetine HCL 60 MG CAP PO SCH (09:00)
[2021-08-07] MEDS ORDERED: UMECLIDINIUM BROMIDE 62.5MCG/BLISTER 7 PUFFS/INHALER INH SCH (09:00)
--- NOTE | 2021-08-07 11:38 | Discharge Summary ---
Date of Service August 07, 2021 Admission HPI Per Admitting Provider 65yo female with long-standing tobacco abuse history dating back to teenage years (2ppd since) and recent inferior wall STEMI s/p ANALI x 2 to an occluded RCA at [facility] last week. She had presented early last week to [facility] with b/l chest tightness and "Crushing" chest pain along with radiation of pain to the jaw and the entire left arm. She had nausea, emesis, and diaphoresis with her acute DC. She was transferred to [facility] in [place]; admission 07/28, discharged 08/01. She was d/c home in stable condition this past and generally felt well with the exception of mild dyspnea on exertion. She had the NEVILLE intermittently and lasting only brief amounts of time since her hospital d/c. Denied having any b/l chest pain that was similar to her acute DC. Overnight last pm she awoke twice with "stabbing" right breast pain. This was associated with severe sweats/diaphoresis. Each episode of right breast pain lasted about 1 minute each. Was able to return to sleep. No pleuritic component. This am she awoke with mild left arm pain which worsened through the morning. She also had heartburn (unusual for her) and nausea. Went to see her PCP, EKG was taken, and she was referred to the [facility] ER. Here a stat echo was done showing normal LV wall motion with EF >70%. She received topical nitrates and her left arm pain was essentially resolved by the time I saw her. She has NOT had any chest pain - either right-sided or b/l - at any time today. Does mention things tasting oddly since her hospital stay last week. She also had diarrhea yesterday. Discharge Data Allergies Allergy/AdvReac Type Severity Reaction Status Date / Time No Known Allergies Allergy Unverified 08/06/21 15:17 Consultations 08/06/21 15:04 ED Decision to Admit Stat Hospital Course (1) Chest pain: Many of her presenting symptoms are quite similar to her recent inferior STEMI. In fact she had improvement in her left arm symptoms with topical nitropaste in the ER. Despite the symptoms her echo today shows normal inferior wall motion and normal EF. This would argue against RCA stent occlusion. She was seen urgently by cardiology this evening and they, too, feel that her symptoms are likely not from ischemia. Will trend her troponins overnight. Follow symptoms. Continue DAPT and other cardiac meds. I did review her d/c summary from [facility] and apparently she had had chest symptoms following initial stent placement. She was taken back to the cardiac cath lab manager and her RCA stents were found to be patent. She had additional episodes of sweats and other chest symptoms as well. Those records suggested w/u for pheochromocytoma. D-dimer was checked and found to be normal. Thus, will hold off on CTA chest for PEs at this time. Sed rate and crp wnl; post-DC pericarditis unlikely. (2) Coronary artery disease: s/p inferior STEMI with 100% occluded RCA 07/28/21. s/p 2 RCA ANALI. Cont DAPT. Cont Coreg. Cont LUPE. Cont statin. (3) Candidiasis of mouth and esophagus: 2nd to chronic inhaled steroids. Nystatin solution 5cc qid. (4) COPD (chronic obstructive pulmonary disease): No evidence of exacerbation at this time. She continues to use tobacco although she has cut back. Cont usual home inhalers. (5) HTN (hypertension): Cont home BP meds. (6) Lan esophagus: Perhaps upper GI tract pathology/GERD/etc is contributing to current symptoms. Either way will continue PPI. 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 chest pain, left arm pain - resolved; exact cause uncertain, but no signs of recurrent heart attack 2. recent heart attack - hospitalized at [facility] - with placement of 2 stents 3. episodes of flushing/sweating - pheochromocytoma to be ruled out with 24- hour urine collection 4. COPD 5. tobacco use Activity: As commented below Activity Comment: no strenuous activities until you see Dr Valencia in the cardiology office Lifting: No more than 10 pounds Sexual Activity: Wait until after follow-up appointment Exercise/Sports: Wait until after follow-up appointment Driving/Machine Use: No limitations Non-emergency contact: Primary Care Provider and Senior Systems Administrator Call non-emergency contact if: you have any medication questions and your symptoms worsen Follow-up/Referrals: Prasanth Valencia MD [Physician] - (1-2 weeks) Kalani Huynh CRNP [Primary Care Provider] - (5-7 days ) Diet: Heart Healthy Ambulatory Orders: Catech Fract+Creat 24hr (Routine) Location: None Selected Ordered By: Indra Shepherd Metanephrines,[id number] (Routine) Location: None Selected Ordered By: Indra Shepherd Addtl Attending Provider Instructions: Mrs Gurrola, Rafael were hospitalized at [facility] for various symptoms including episodes of right-sided breast/chest discomfort, left arm pain, shortness of breath and sweating/flushing. Fortunately all the testing for your heart suggests that your stents are open and working well. Your chest x-ray did not show pneumonia, COVID testing was negative, and blood work otherwise was acceptable. You were seen by Dr Kevin Valencia, [facility], who looked at your echocardiogram and all the testing. It was felt that your symptoms were not from another new heart attack or the prior heart attack. We did not see any congestive heart failure or signs of inflammation of the heart either. You do have a mild case of thrush (yeast infection) of the mouth. This is easily treatable with nystatin solution. Take this for 7 days. Be sure to rinse your mouth with water after using your COPD inhalers. To rule out a rare condition called "pheochromocytoma" (a tumor that can secrete hormones that can raise your blood pressure and give you sweats) please complete a 24-hour urine collection at your convenience at home. After the collection is complete please drop off to your family doctor's office or [facility] main lab. We have not changed any of your newly started heart medications. If you continue to have chest symptoms I would recommend that you see your GI doctor for consideration of another endoscopy of the esophagus/stomach. Follow-up - see separate section Return to [facility] if - * you have to use your nitroglycerin tablets under the tongue for chest pain * you have chest pains, shortness of breath, or any other symptoms that remind you of your heart attack * any other concerns It was our pleasure to care for you at [facility]! Dr Shepherd Pending Studies at Discharge: No Stand-Alone Forms: My [facility], Smoking Cessation Medications and DC Order Prescriptions: New nystatin 100,000 unit/mL Suspension 5 ml PO QID 7 Days Qty: 150 RF: 0 Continued Advair HFA 230-21 mcg/actuation HFA aerosol inhaler 2 puffs INH BID Qty: 12 RF: 5 ondansetron HCl 4 mg tablet 4 mg PO Q8H PRN (Reason: Nausea) Qty: 30 RF: 0 omeprazole 40 mg capsule,delayed release(DR/EC) 40 mg PO DAILY Qty: 90 RF: 3 duloxetine [Cymbalta] 60 mg capsule,delayed release(DR/EC) 60 mg PO QAM RF: 0 albuterol sulfate [Ventolin HFA] 90 mcg/actuation HFA aerosol inhaler 1 puffs INH Q6H PRN (Reason: shortness of breath or wheezing) Qty: 18 RF: 5 trazodone 100 mg tablet 100 mg PO HS RF: 0 aspirin [Aspirin Childrens] 81 mg tablet,chewable 81 mg PO DAILY RF: 0 atorvastatin 80 mg tablet 80 mg PO DAILY RF: 0 carvedilol 3.125 mg tablet 3.125 mg PO BID RF: 0 lisinopril 5 mg tablet 5 mg PO DAILY RF: 0 ticagrelor 90 mg tablet 90 mg PO BID RF: 0 nitroglycerin 0.4 mg tablet, sublingual 0.4 mg sublingual Q5M PRN (Reason: Unknown) RF: 0 Incruse Ellipta 62.5 mcg/actuation blister with device 1 inh INH QAM RF: 0 Advair HFA 230-21 mcg/actuation HFA aerosol inhaler 2 puffs INH BID Qty: 12 RF: 5 Discharge Orders: Discharge Order (Routine); Ordered 08/07/21 Ordered By: Indra Shepherd Admission Data Admit Date/Time: 08/06/21 16:29 Attending Provider: Indra Shepherd Admit Provider: Indra Shepherd Primary Care Provider: Kalani Huynh Other Providers: Indra Shepherd Other Interventions: Discharge Summary Assessment (RN) Last Done: 08/07/21 11:21 Coding Diagnoses Chest pain R07.9 Coronary artery disease I25.10 Candidiasis of mouth and esophagus B37.81; B37.0 COPD (chronic obstructive pulmonary disease) J44.9 HTN (hypertension) I10 Lan esophagus K22.70 Depression F32.9 Hypercholesterolemia E78.00 Tobacco use Z72.0
--- NOTE | 2021-08-07 21:38 | Electrocardiogram Report ---
Test Reason : Blood Pressure : / mmHG Vent. Rate : 061 BPM Atrial Rate : 061 BPM P-R Int : 130 ms QRS Dur : 074 ms QT Int : 450 ms P-R-T Axes : 062 028 091 degrees QTc Int : 453 ms Normal sinus rhythm Inferior infarct , age undetermined Anterior infarct (cited on or before 09-APR-2021) Abnormal ECG When compared with ECG of 09-APR-2021 11:13, Inferior infarct is now Present Confirmed by Bryn Greene ([id number]) on 08/07/2021 9:38:43 PM Referred By: Kalani Huynh Confirmed By:Bryn Greene
--- NOTE | 2021-08-07 22:01 | Electrocardiogram Report ---
Test Reason : Blood Pressure : / mmHG Vent. Rate : 058 BPM Atrial Rate : 058 BPM P-R Int : 142 ms QRS Dur : 076 ms QT Int : 450 ms P-R-T Axes : 055 -09 090 degrees QTc Int : 441 ms Poor data quality, interpretation may be adversely affected Sinus bradycardia Inferior infarct (cited on or before 06-AUG-2021) Anterior infarct (cited on or before 09-APR-2021) T wave abnormality, consider lateral ischemia Abnormal ECG When compared with ECG of 06-AUG-2021 13:20, No significant change was found Confirmed by Bryn Greene ([id number]) on 08/07/2021 10:00:59 PM Referred By: Kalani Huynh Confirmed By:Bryn Greene
== END 2021-08-07 12:03 | disposition home or self-care (01) ==
LOC: 2E 13:09 → ED 13:09 → 2E 17:49